=== PATIENT | male | born 1950 | race Caucasian/White ===

== ENCOUNTER 2024-02-27 01:16 | Day surgery (SDC) | payer MEDICARE, SELFPAY ==
[2024-02-15 10:47] VITALS: BMI 24.0
[2024-02-27 06:21] VITALS: BP 116/70; PULSE 86; RESP 16; TEMP 36.3; O2SAT 100; BMI 24.0
[2024-02-27] MEDS: LACTATED RINGERS 1,000 ML 150 ML IV CONT (06:29)
--- NOTE | 2024-02-27 07:00 | P.PNAN_ITS ---
Anes - Initial Pre Proc Eval Procedure: Operation Date: 02/27/24 07:30 Proposed Procedures p Screening Colonoscopy - Serjio Dixon MD <Adán Smith DO - Last Filed: 02/27/24 07:01> Date/Time: 02/27/24 07:00 <Adán Smith DO - Last Filed: 02/27/24 07:01> Surgeon: Serjio Dixon MD <Adán Smith DO - Last Filed: 02/27/24 07:01> Pre Op Diagnosis: Hx Colon Polyps <Adán Smith DO - Last Filed: 02/27/24 07:01> Patient Data Age: 73 Gender: M Height: 1.75 m Weight: 73.9 kg <Adán Smith DO - Last Filed: 02/27/24 07:01> Last Vital Signs Temp 36.3 C L 02/27/24 06:21 Pulse 86 02/27/24 06:21 Resp 16 02/27/24 06:21 BP 116/70 02/27/24 06:21 Pulse Ox 100 02/27/24 06:21 O2 Del Method Room Air 02/27/24 06:21 <Adán Smith DO - Last Filed: 02/27/24 07:01> Allergies Allergy/AdvReac Type Severity Reaction Status Date / Time No Known Allergies Allergy Unknown Verified 02/27/24 06:19 <Adán Smith DO - Last Filed: 02/27/24 07:01> Home Medications Medication Instructions Recorded Confirmed Type Lactobacillus 1 cap PO DAILY 02/15/24 02/27/24 History acidophilus-Bifidobac.animalis 2.5 billion cell capsule (Daily Probiotic) azelastine 137 mcg (0.1 %) nasal 2 spray intranasal BID 02/15/24 02/27/24 History spray finasteride 5 mg tablet 5 mg PO DAILY 02/15/24 02/27/24 History fluticasone propionate 50 2 spray intranasal DAILY 02/15/24 02/27/24 History mcg/actuation nasal spray,suspension lisinopril 20 1 tablet PO DAILY 02/15/24 02/27/24 History mg-hydrochlorothiazide 12.5 mg tablet metoprolol tartrate 50 mg tablet 100 mg PO DAILY 02/15/24 02/27/24 History omeprazole 40 mg capsule,delayed 40 mg PO DAILY 02/15/24 02/27/24 History release <Adán Smith DO - Last Filed: 02/27/24 07:01> Patient hx anesthesia problems: none <Beba Rdz CRNA - Last Filed: 02/27/24 07:21> Family hx anesthesia problems: none <Beba Rdz CRNA - Last Filed: 02/27/24 07:21> Results Review: All pre-operative results and documents have been reviewed as part of the pre-operative evaluation. <Adán Smith DO - Last Filed: 02/27/24 07:01> [facility] Past Medical History Medical History: Medical History (Updated 02/26/24 @ 09:48 by Adán Smith DO) Hypertension SVT (supraventricular tachycardia) <Adán Smith DO - Last Filed: 02/27/24 07:01> Surgical History Surgical History: Surgical History (Updated 02/26/24 @ 09:48 by Adán Smith DO) History of cardiac radiofrequency ablation 2005 History of gastric bypass 2003 <Adán Smith DO - Last Filed: 02/27/24 07:01> Social History Social History: Social History Smoking status: Never smoker Alcohol intake: current Drinks per week: 4 Substance use: never Substance use type: does not use Living arrangements: with family Spiritual care concerns: No <Adán Smith DO - Last Filed: 02/27/24 07:01> Anes - Eval Final PreProcedure Day of Procedure 02/27/24 07:00 <Adán Smith DO - Last Filed: 02/27/24 07:01> Patient weight: normal <Adán Smith DO - Last Filed: 02/27/24 07:01> Heart: regular rate and rhythm <Adán Smith DO - Last Filed: 02/27/24 07:01> Lungs: clear to auscultation and normal air movement <Adán Smith DO - Last Filed: 02/27/24 07:01> Airway: Mallampati scale class II <Adán Smith DO - Last Filed: 02/27/24 07:01> Neurological: alert and oriented <Adán Smith DO - Last Filed: 02/27/24 07:01> Last oral intake: >/= 8 hours <Adán Smith DO - Last Filed: 02/27/24 07:01> ASA classification: III <Adán Smith DO - Last Filed: 02/27/24 07:01> Emergent: no <Adán Smith DO - Last Filed: 02/27/24 07:01> Anesthetic plan: proceed <Adán Smith DO - Last Filed: 02/27/24 07:01> Anesthesia type and monitoring: general GIVS and standard monitoring <Adán Smith DO - Last Filed: 02/27/24 07:01> Results Review: All pre-operative results and documents have been reviewed as part of the pre-operative evaluation. <Adán Smith DO - Last Filed: 02/27/24 07:01> Informed Consent: The patient's anesthetic plan and its attendant risks and benefits were discussed with the patient/family/POA. Questions were solicited and answers provided to the satisfaction of the patient/family/POA. <Adán Smith DO - Last Filed: 02/27/24 07:01>
--- NOTE | 2024-02-27 07:23 | PM.IMHP ---
H&P: HPI History of Present Illness Date/Time: 02/27/24 07:23 Chief Complaint: Screening colonoscopy Narrative: This is the patient's 2nd colonoscopy. the 1st 1 was over 10 years ago. There are no GI symptoms and there is no family history of colorectal cancer. Review of Systems Review of Systems: All systems reviewed & are unremarkable except as noted in HPI and below PMFSH Past Medical History Medical History (Updated 02/27/24 @ 07:24 by Serjio Dixon MD) Hypertension SVT (supraventricular tachycardia) Surgical History Surgical History (Updated 02/26/24 @ 09:48 by Adán Smith DO) History of cardiac radiofrequency ablation 2005 History of gastric bypass 2003 Social History Social History Smoking status: Never smoker Alcohol intake: current Drinks per week: 4 Substance use: never Substance use type: does not use Living arrangements: with family Spiritual care concerns: No Meds Home Medications and Allergies Home Medications Medication Instructions Recorded Confirmed Type Lactobacillus 1 cap PO DAILY 02/15/24 02/27/24 History acidophilus-Bifidobac.animalis 2.5 billion cell capsule (Daily Probiotic) azelastine 137 mcg (0.1 %) nasal 2 spray intranasal BID 02/15/24 02/27/24 History spray finasteride 5 mg tablet 5 mg PO DAILY 02/15/24 02/27/24 History fluticasone propionate 50 2 spray intranasal DAILY 02/15/24 02/27/24 History mcg/actuation nasal spray,suspension lisinopril 20 1 tablet PO DAILY 02/15/24 02/27/24 History mg-hydrochlorothiazide 12.5 mg tablet metoprolol tartrate 50 mg tablet 100 mg PO DAILY 02/15/24 02/27/24 History omeprazole 40 mg capsule,delayed 40 mg PO DAILY 02/15/24 02/27/24 History release Allergies Allergy/AdvReac Type Severity Reaction Status Date / Time No Known Allergies Allergy Unknown Verified 02/27/24 06:19 Vital Signs Vital Signs - 24 hr 02/27/24 06:21 Temperature 97.3 F L Pulse Rate 86 Respiratory Rate 16 Blood Pressure 116/70 Pulse Oximetry 100 Oxygen Delivery Room Air Exam Const: General: cooperative and healthy appearing Resp: Effort & Inspection: normal respiratory effort and able to speak in complete sentences Auscultation: clear to auscultation bilaterally Cardio: Rate: regular rate Rhythm: regular rhythm GI: Inspection: normal to inspection GI Palp: No No hepatosplenomegaly present Auscultation: normal bowel sounds Rectal Exam: deferred Skin: General skin exam: normal color Psych: Appearance: grossly normal Mental Status: mental status grossly normal Assessment and Plan Assessment and plan (1) Screening for malignant neoplasm of colon: Code(s): Z12.11 - Encounter for screening for malignant neoplasm of colon Status: Acute Assessment and Plan: The patient is deemed a good candidate for the procedure. Consent signed. Will proceed.
[2024-02-27 07:47] VITALS: BP 105/67; PULSE 50; RESP 15; O2SAT 99
[2024-02-27 07:57] VITALS: BP 105/61; PULSE 49; RESP 17; O2SAT 99
[2024-02-27 08:07] VITALS: BP 114/72; PULSE 50; RESP 17; O2SAT 99
== END 2024-02-27 08:15 | disposition home or self-care (01) ==
PROVIDERS: PCP Internal Medicine; Referring Provider Internal Medicine; Visit Provider Internal Medicine Gastroenterology
PROC: 0DJD8ZZ Inspection of Lower Intestinal Tract, Via Natural or Artificial Opening Endoscopic (ICD-10-PCS; CPT 45378; principal; 2024-02-27 07:30)
DX: Z12.11 Encounter for screening for malignant neoplasm of colon (principal); K64.0 First degree hemorrhoids; I10 Essential (primary) hypertension; I47.10 Supraventricular tachycardia, unspecified; Z98.84 Bariatric surgery status; Z86.0100 Personal history of colon polyps, unspecified
CPT/HCPCS: G0105; J2003; J2704; J7120

== ENCOUNTER 2024-04-14 09:59 | Outpatient (CLI) | payer MEDICARE, SELFPAY ==
--- NOTE | ~2024-04-14 | DEXA_ITS ---
Bone Density Report Name: KEN JAMES Age: 73 Sex: Male Ethnicity: White Date of : 1950 Indication: screening for osteoporosis; Referring Provider: JOSELYN*, SALLY Rice Study: Bone densitometry was performed. Exam Date: April 14, 2024 Accession number: [id number] Bone Density: Region BMD T-score Z-score Classification AP Spine(L1-L4) 0.891 -1.8 -0.8 Osteopenia Femoral Neck (Left) 0.797 -1.0 0.3 Normal Total Hip (Left) 1.109 0.5 1.3 Normal Femoral Neck (Right) 0.726 -1.5 -0.2 Osteopenia Total Hip (Right) 0.924 -0.7 0.1 Normal Total Hip Mean 1.017 -0.1 0.7 Normal World Health Organization criteria for BMD impression classify patients as: Normal (T-score at or above -1.0), Osteopenia (T-score between -1.0 and -2.5), or Osteoporosis (T-score at or below -2.5). 10-year Fracture Risk(1): Major Osteoporotic Fracture 6.4% Hip Fracture 1.7% Reported Risk Factors: [place] (), Neck BMD=0.726, BMI=24.1 (1) FRAX(R) Version 3.08. Fracture probability calculated for an untreated patient. Fracture probability may be lower if the patient has received treatment. Clinical Information Provided by Patient: Patient maximum height was 69 Impression: The patient has low bone mass, based on the Total Spine T-score. The patient has an estimated ten-year risk of hip fracture of 1.7% and an estimated ten-year risk of major fracture of 6.4%, based on the WHO FRAX algorithm. Discussion: BONE DENSITY IS LOW AT ONE OR MORE SKELETAL SITES. This patient's lowest T-score is low at one or more skeletal sites. It meets the World Health Organization's (WHO) criteria for ?low bone mass? (T-score between -1.0 and -2.5). The patient's 10-year risk of fracture as calculated by FRAX is less than the threshold where pharmacological therapy is recommended by the National Osteoporosis Foundation (NOF). However, all treatment decisions require clinical judgment and consideration of individual patient factors, including patient preferences, comorbidities, previous drug use, risk factors not captured in the FRAX model (e.g., frailty, falls, vitamin D deficiency, increased bone turnover, interval significant decline in bone density) and possible under or overestimation of fracture risk by FRAX. The patient should follow a healthful lifestyle (good nutrition with adequate calcium and vitamin D, and appropriate weight-bearing exercise). Follow-Up: Consider repeating this study in 2 to 3 years to reassess this patient's status, or sooner if there is some new clinical indication. Reported by: ROSEANN on 04/14/2024 10:30:00 AM. Reviewed, dictated and finalized at location [facility]
== END 2024-04-14 10:00 | disposition home or self-care (01) ==
LOC: ANHIMG 10:03
PROVIDERS: PCP Internal Medicine; Visit Provider Internal Medicine
DX: M81.0 Age-related osteoporosis without current pathological fracture (principal); M85.89 Other specified disorders of bone density and structure, multiple sites; Z13.820 Encounter for screening for osteoporosis
CPT/HCPCS: 77080

== ENCOUNTER 2024-07-02 08:30 | Outpatient (CLI) | payer MEDICARE, SELFPAY ==
--- OUTSIDE RECORDS SUMMARY | 2024-07-02 08:56 | XMS_ITS | CONTINUITY OF CARE DOCUMENT ---
Author Name shannon ortega Address Unknown Organization [facility] [address] Address [address] [place] [address] Phone [phone] Care Team Providers Care Eap Counselor Name Role Phone Reza Schaeffer MD Unavailable SALLY AVALOS MD Unavailable SALLY AVALOS MD Unavailable PROBLEMS Condition Status Date Provider Notes Chest pain active [employer] Payer name Policy type / Coverage type [place] red [employer] party ID [facility] [id number] [place] MED[place] Medicare [id number] TREATMENT PLAN Date Name Stress Exercise Card iolite
--- OUTSIDE RECORDS SUMMARY | 2024-07-02 08:57 | XMS_ITS | Clinical Summary ---
Author Organization [facility] Address [address] [place] [address] Care Team Providers Care Statistical Methods Teacher Name Role Phone Keith Ball MD Primary Care Provider [phone] Source Comments [facility],non-owned Affiliates and Associated Physician Practices is amultiple site organization consisting of ambulatory clinics and hospital sitesin [place], [place], [place] and [place]. This disclosure is being madepursuant to the Care Everywhere program and may not contain all information available regarding this patient. Last updated 18.[employer] Allergies No known active allergies Medications * Be aware that medications may not be up to date on this document. Alwaysverify current medications with the patient. Medication Sig Dispensed Refills Start Date End Date Status lisinopril-hydrochloro thiazide (PRINZIDE; ZESTORETIC) 20-12.5 MG tablet Take 1 Tab by mouth once daily Active metoprolol succinate XL 24hr (TOPROL XL) 50 MG tablet Take 50 mg by mouth once daily Active finasteride (PROSCAR) 5 MG tablet Take 5 mg by mouth once daily Active azelastine (ASTEPRO) 205.5 MCG/SPRAY nasal spray [place] 2 Sprays into each nostril 2 times daily Active fluticasone propionate (FLONASE) 50 MCG/ACT nasal spray 03/12/2015 Active Family History Medical History Relation Name Comments Stroke Other 1 Cancer Other 2 Relation Name Status Comments Father (Age 81) stroke Mother (Age 89) stroke Other 1 Other 2 Sister Alive MS Social History Tobacco Use Types Packs/Day Years Used Date Smoking Tobacco: Never Smokeless Tobacco: Never Alcohol Use Standard Drinks/Week Comments Yes 0 (1 standard drink = 0.6 oz pur e alcohol) 3-5 per week Sex and Gender Information Value Date Recorded Sex Assigned at Not on file Gender Identity Not on file Sexual Orientation Not on file Last Filed Vital Signs Vital Sign Reading Time Taken Comments Blood Pressure 126/84 03/31/2015 11:22 AM PARLIAMENTARY COUNSEL Pulse 51 03/31/2015 11:22 AM PARLIAMENTARY COUNSEL Temperature 36.7 C (98 F) 03/31/2015 11:22 AM PARLIAMENTARY COUNSEL Respiratory Rate - - Oxygen Saturation - - Inhaled Oxygen Concentration - - Weight 83.9 kg (185 lb) 03/31/2015 11:22 AM PARLIAMENTARY COUNSEL Height 175.3 cm (5' 9 ) 03/31/2015 11:22 AM PARLIAMENTARY COUNSEL Body Mass Index 27.32 03/31/2015 11:22 AM PARLIAMENTARY COUNSEL Plan of Treatment Health Maintenance Due Date Last Done Comments COLOGUARD (AGES 45-75) - COL ON CA SCREENING 1950 COLON MONITORING 1950 COLONOSCOPY - COLON CA SCREENING 1950 CT COLONOGRAPHY - COLON CA SCREENING 1950 Colorectal Cancer Screening 1950 FIT - COLON CA SCREENING 1950 FLEX SIG - COLON CA SCREENING 1950 LIPID TESTING 1950 HEPATITIS C SCREENING 05/29/1968 DTAP/TDAP/TD VACCINES (1 - Tdap) 1969 PNEUMOCOCCAL VACCINE 50+ (1 of 1 - PCV) 2000 ZOSTER VACCINE (1 of 2) 2000 COVID-19 VACCINE ( - 2023-2 5 season) 2023 INFLUENZA VACCINE (#1) 2023 DEPRESSION SCREENING 04/18/2024 Respiratory Syncytial Virus (RSV) Vaccine Pt: or over 60 yrs (1 - 1-dose 75+ series) 2025 HEPATITIS B VACCINE Aged Out No longe r eligible based on patient's age to complete this topic HIB VACCINE Aged Out No longer eligi ble based on patient's age to complete this topic HPV VACCINE Aged Out No longer eligi ble based on patient's age to complete this topic MENINGOCOCCAL (Group B) VACC INE SHARED DECISION-MAKING Aged Out No longer eligibl e based on patient's age to complete this topic MENINGOCOCCAL GROUPS A/C/Y/W VACCINE Aged Out No longer eligible b ased on patient's age to complete this topic Care Teams Statistical Methods Teacher Relationship Specialty Start Date End Date Keith Ball MD [address] [place] [address] [address] [place] [address] PCP - General Internal Medicine 03/21/15
--- OUTSIDE RECORDS SUMMARY | 2024-07-02 08:57 | XMS_ITS | Referral Summary ---
Author Organization [facility] Address [address] [place] [address] Care Team Providers Care Lean Leader Name Role Phone Keith Ball MD Primary Care Provider [phone] Source Comments [facility],non-owned Affiliates and Associated Physician Practices is amultiple site organization consisting of ambulatory clinics and hospital sitesin [place], [place], [place] and [place]. This disclosure is being madepursuant to the Care Everywhere program and may not contain all information available regarding this patient. Last updated 18.[facility] Allergies No known active allergies Medications * [...] Active azelastine (ASTEPRO) 205.5 MCG/SPRAY nasal spray [place] 2 Sprays into each nostril 2 times daily Active fluticasone propionate (FLONASE) 50 MCG/ACT nasal spray 03/12/2015 Active Social History Tobacco Use Types Packs/Day Years [...] Comments Blood Pressure 126/84 03/31/2015 11:22 AM DIGITAL X RAY SERVICE ENGINEER Pulse 51 03/31/2015 11:22 AM DIGITAL X RAY SERVICE ENGINEER Temperature 36.7 C (98 F) 03/31/2015 11:22 AM DIGITAL X RAY SERVICE ENGINEER Respiratory Rate - - Oxygen Saturation - - Inhaled Oxygen Concentration - - Weight 83.9 kg (185 lb) 03/31/2015 11:22 AM DIGITAL X RAY SERVICE ENGINEER Height 175.3 cm (5' 9 ) 03/31/2015 11:22 AM DIGITAL X RAY SERVICE ENGINEER Body Mass Index 27.32 03/31/2015 11:22 AM DIGITAL X RAY SERVICE ENGINEER Plan of Treatment Not on file Care Teams Lean Leader Relationship Specialty Start Date End Date Keith Ball MD [address] [place] [address] [address] [place] [address] PCP - General Internal Medicine 03/21/15
--- OUTSIDE RECORDS SUMMARY | 2024-07-02 08:57 | XMS_ITS | Data Portability ---
Author Organization [place] [facility], Main Office Address [address] [place] [address] Care Team Providers Care Machining Supervisor Name Role Phone SALLY BALL Primary Care Provider Assessment No assessment recorded. Plan of Treatment Reminders Order Date Submit Date Provider Last Modified By Organization Details Last Modified Time Details Appointments None recorded. Lab enteric bacteria, organism specific culture, stool [address] (Lab), [address] [place], [address], 4 12:36:50 c diff toxin genes, qual, PCR, stool [address] (Lab), [address] [place], [address], 4 12:36:51 O&P (ova & parasites), stool [address] (Lab), [address] [place], [address], 4 12:36:51 calprotecti n, stool 2023 024 [id number] [facility], [address] [facility] [address], [address], 5 17:44:00 pancreatic elastase, quant, stool 2023 024 [id number] [facility], [address] [facility] [address], [address], 5 17:44:00 lipid panel, serum 2023 024 [id number] [facility] [place], [address], [place], [address], 4 14:36:24 CMP, serum or plasma 2023 024 [id number] [facility] [place], [address], [place], [address], 4 14:36:25 vitamin B12, serum 2023 024 [id number] [facility] [place], [address], [place], [address], 4 14:36:25 magnesium, serum or plasma 2023 024 [id number] [facility] [place], [address], [place], [address], 4 14:36:25 CBC w/ auto diff 2023 024 [facility] [place], [address], [place], [address], 4 14:36:24 CMP, serum or plasma 2023 024 [id number] [facility] [place], [address], [place], [address], 4 10:05:38 lipid panel, serum 2023 024 [id number] [facility] [place], [address], [place], [address], 4 10:05:38 PSA, serum or plasma 2023 024 [facility] [place], [address], [place], [address], 4 10:05:39 CBC w/ auto diff 2023 024 [id number] [facility], [address], [place], [address], 4 10:05:38 TSH, serum or plasma 2023 024 [id number] [facility], [address], [place], [address], 4 10:05:38 T4, free, serum 2023 024 [id number] [facility], [address], [place], [address], 4 10:05:39 lyme disease igg+igm, serum, reflex western blot 2022 023 [id number] [facility], [address], [place], [address], 3 09:50:56 CBC w/ auto diff 2022 023 [id number] [facility] [place], [address], [place], [address], 3 09:50:56 CMP, serum or plasma 2022 023 [facility], [address], [place], [address], 3 09:50:56 lipid panel, serum 2022 023 [id number] [facility] [place], [address], [place], [address], 3 09:50:56 Referral None recorded. Procedures None recorded. Surgeries None recorded. Imaging None recorded. Medication Orders pantoprazol e 40 mg tablet,garcía yed release 2023 024 [facility] [place], [address], 4 10:51:42 doxycycline hyclate 100 mg capsule 2022 023 [email or web address] [facility], [address] [place], [address], 4 10:54:27 Patient TargetsNo targets recorded. Patient Instructions Encounter Date Encounter Id Patient Instructions Last Modified By Organization Details Last Modified Time 12/21/2022 [id number] dementia rating scale-2* [email or web address] Not available 12/21/2022 11:17:29 alcohol misuse* Not available 12/21/2022 11:17:30 depression screening* [email or web address] Not available 12/21/2022 11:17:29 multi-dimensiona l health assessment questionnaire* [email or web address] Not available 12/21/2022 11:17:30 Personalized [facility] lt Plan and Screening Recommendations Advance Directives - Do you have one? Yes Advance Directives - Do we have your advance directive on file in your health record? No, please bring in a copy at your earliest convenience Primary Prevention/Interven tion (prevents or decreases the chance of common diseases from occurring) Smoking Risk: Non Smoker Alcohol Misuse Screening: Negative Weight: Appropriate Physical activity: Appropriate physical activity Nutrition: Good Average Fall Risk (screened today): Low Vaccines Pneumococcal: Ordered Recommended today Recommended today, but you have declined No further needed Influenza: Your next one in the fall of this year Chronic Disease Risks Stroke: Low Risk Intermediate Risk I have no recommendations Act ronda diagnosis, Continue current treatment plan Heart Attack: Low risk Intermediate Risk I have no recommendations Act ronda diagnosis, Continue current treatment plan Clogging of the Arteries: Low risk Intermediate Risk I have no recommendations Act ronda diagnosis, Continue current treatment plan Diabetes: Low Risk I have no recommendations Secondary Prevention/Interven tion (detects treatable diseases before they may cause symptoms, disability, or ) Prostate Cancer Screening: Colon Cancer Screening: Colonoscopy Date Screening Last Performed: __2017 Eye Disease Screening: Dementia Risk: Low I have no recommendations Depression Screening: Negative [email or web address] Not available 12/21/2022 10:48:15 Medicare [facility] evaluation risk assessment stable. Follow-up for hypertension -hyperlipidemia -SVT and BPH all clinically stable. Will continue on current Rx. Will check a CBC, CMP, Lipid and Lyme titer. With some doxycycline in the interim. Recheck back in six months. Portions of the record may have been created with voice recognition software. Occasional wrong-word or s ound-a-like substitutions may have occurred due to the inherent limitations of voice recognition software. Read the chart carefully and recognize, using context, where substitutions have occurred. Not available 12/21/2022 11:17:04 06/21/2023 [id number] Atypical chest pain, hypertension, hyperlipidemia history of colon polyp. Will empirically start on some pantoprazole 40 mg once daily in the morning. Set up for upper and lower endoscopy. Check blood work consisting of CBC, CMP, lipid, thyroid and PSA. Follow-up in six months otherwise. FDA recommendations of a influenza, RSV, COVID, pneumococcal immunizations strongly advised. Portions of the record may have been created with voice recognition software. Occasional wrong-word or s ound-a-like substitutions may have occurred due to the inherent limitations of voice recognition software. Read the chart carefully and recognize, using context, where substitutions have occurred. Follow-up colonoscopy for polyp Upper endoscopy for dysphagia [email or web address] Not available 06/21/2023 10:51:13 12/27/2023 [id number] dementia rating scale-2* [email or web address] Not available 12/27/2023 11:19:50 alcohol misuse* [email or web address] Not available 12/27/2023 11:19:50 depression screening* [email or web address] Not available 12/27/2023 11:19:50 multi-dimensiona l health assessment questionnaire* Not available 12/27/2023 11:19:50 Personalized a lth Plan and Screening Recommendations Advance Directives - Do you have one? Yes Advance Directives - Do we have your advance directive on file in your health record? No, please bring in a copy at your earliest convenience Primary Prevention/Interven tion (prevents or decreases the chance of common diseases from occurring) Smoking Risk: Non Smoker Alcohol Misuse Screening: Negative Weight: Appropriate Physical activity: Need more exercise/physical activity Nutrition: Good Average Fall Risk (screened today): Low Vaccines Pneumococcal: Ordered Recommended today Recommended today, but you have declined No further needed Influenza: Your next one in the fall of this year Chronic Disease Risks Stroke: Low Risk Intermediate Risk I have no recommendations Act ronda diagnosis, Continue current treatment plan Heart Attack: Low risk Intermediate Risk I have no recommendations Act ronda diagnosis, Continue current treatment plan Clogging of the Arteries: Low risk Intermediate Risk I have no recommendations Act ronda diagnosis, Continue current treatment plan Diabetes: Low Risk I have no recommendations Secondary Prevention/Interven tion (detects treatable diseases before they may cause symptoms, disability, or ) Prostate Cancer Screening: Colon Cancer Screening: Colonoscopy Date Screening Last Performed: _2021____ Eye Disease Screening: Dementia Risk: Low I have no recommendations Depression Screening: Negative [email or web address] Not available 12/27/2023 11:04:39 Medicare [facility] s evaluation risk assessment stable. Follow-up for hypertension, hyperlipidemia, GERD, osteoarthritis and history of colon polyps. Will continue on current medications but check blood work consisting of CBC, CMP, lipid, B12 magnesium level. Is due for a colonoscopy as well. Continue on current medications and follow-up in six months. Additional Orders - Directives - Recommendations 1. DEXA Scan 2. Colonoscopy Follow-up for colon polyps Next Appointment: 6 Months Approximate Date: 06/24/2024 Portions of the record may have been created with voice recognition software. Occasional wrong-word or s ound-a-like substitutions may have occurred due to the inherent limitations of voice recognition software. Read the chart carefully and recognize, using context, where substitutions have occurred. [email or web address] Not available 12/27/2023 11:19:04 04/04/2024 [id number] Diarrhea, hypertension, hyperlipidemia, SVT, benign prostatic hypertrophy. Plan to check a stool specimen for C diff as as other agents. Will also get a calprotectin level as well as a last days. Continue on current medications this time until further evaluation is been determined. May need a CT scan of the abdomen and pelvis because of a family history GI malignancies although has had an upper endoscopy and colonoscopy was just done recently. Follow Up: 4 Weeks Approximate Date: 05/02/2024 Portions of the record may have been created with voice recognition software. Occasional wrong-word or s ound-a-like substitutions may have occurred due to the inherent limitations of voice recognition software. Read the chart carefully and recognize, using context, where substitutions have occurred. Created: Sally Ball M.D. 04.04.2024 11:32 AM [email or web address] Not available 04/04/2024 12:32:40 Reason for Referral None Reported. Results Created Date Observation Date Name Description Value Unit Range Abnormal Flag Note LastModifiedBy Organization Detail LastModifiedTime 04/16/20 24 04/14/2024 DEXA No observ ation record ed. [email or web address] [facility] [address], [place], [address], 04/16/2024 13:46:45 Result Notes None recorded. 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 2021 Not Available [facility] 3 14:48:07 Benign prostatic hyperplasia 170211193 Active Not Available [facility] 3 14:48:08 Pure hypercholeste rolemia 578033156 Active Not Available [facility] 3 14:48:08 Disorder of prostate 81864283 Active 2022 Not Available [facility] 3 14:48:08 Disorder of penis 30267868 Active Not Available [facility] 3 14:48:08 Migraine 44673215 Active Not Available [facility] 3 14:48:08 Umbilical hernia 407486931 Active Not Available [facility] 3 14:48:08 Disorder of rotator cuff 087414085 Active Not Available [facility] 3 14:48:08 History of polyp of colon 817799056 Active 2016 Not Available [facility] 3 14:48:08 Screening for malignant neoplasm of prostate Active 2021 Not Available [facility] 3 14:48:08 Cervical radiculopathy 52788038 Active Not Available [facility] 3 14:48:08 Carpal tunnel syndrome 17968677 Active Not Available [facility] 3 14:48:08 Supraventricu lar tachycardia 4723089 Active Not Available [facility] 3 14:48:08 Bilateral inguinal hernia 85304620 Active Not Available [facility] 3 14:48:08 Annular erythema 713674641 Active 2022 Sally Ball MD [address], [address], [place], [address] , [employer] 3 11:15:36 Atypical chest pain 529341653 Active 2023 Sally Ball MD [address], [address], [place], [address] , [employer] 4 10:43:15 Osteoarthriti s 965451057 Active 2023 Sally Ball MD [address], [address], [place], [address] , [employer] 4 11:12:48 Gastroesophag eal reflux disease 122845341 Active 2023 Sally Ball MD [address], [address], [place], [address] , [employer] 4 11:14:01 Diarrhea 48408911 Active 2023 Sally Ball MD [address], [place], [address] , [employer] 4 12:25:00 Problem Notes None recorded. Procedures Surgical History Date Name Laterality Status Provider Name and Address Organization Details Recorded Time 4 Medicare Wellness CPT Code, subsequent completed JACQUELYN Carrasquillo [facility] [employer] [facility] 12/27/2023 10:58:03 3 Medicare Wellness CPT Code, subsequent completed JACQUELYN Carrasquillo [facility] 12/21/2022 10:41:54 Imaging Results Imaging Date Name Status LastModified by Organizatio n Details LastModified Time 04/14/2024 DEXA completed [email or web address] [place] [address] [address], [place], [address], 04/16/2024 13:46:45 Procedure Notes None recorded. Medical Equipment None Reported. Medications Name Sig Start Date Stop Date Status Note LastModified by Organization Details LastModified Time celecoxib 200 mg capsule Take 1 capsule every day by oral route. 2023 active Not Available Not Available Not Avai lable cyclobenz aprine 10 mg tablet Take 1 tablet three times daily 11/18 completed Not Available Not Available Not Available doxycycli ne hyclate 100 mg capsule TAKE 1 CAPSULE BY MOUTH TWICE DAILY 12/26 completed Not Available Not Available Not Available lisinopri l 20 mg-hydroc hlorothia zide 12.5 mg tablet TAKE 1 TABLET EVERY DAY 2023 active Not Available Not Available Not Avai lable diphenoxy late-atro pine 2.5 mg-0.025 mg tablet TAKE 1 TABLET BY MOUTH 4 TIMES DAILY NEEDED 11/18 completed Not Available Not Available Not Available penicilli n V potassium 500 mg tablet TAKE 1 TABLET BY MOUTH EVERY 6 HOURS UNTIL GONE 12/26 completed Not Available Not Available Not Available omeprazol e 40 mg capsule,d elayed release TAKE 1 CAPSULE BY MOUTH ONCE DAILY BEFORE A MEAL 2024 active Not Available Not Available Not Avai lable tramadol 50 mg tablet TAKE 1 TABLET BY MOUTH EVERY 6 HOURS NEEDED FOR PAIN active Not Available Not Available No t Available Aleve 220 mg tablet Take 1 tablet every 12 hours by oral route. 2012 active Not Available Not Available Not Avai lable cephalexi n 500 mg capsule TAKE 1 CAPSULE BY MOUTH THREE TIMES A DAY 11/18 completed Not Available Not Available Not Available pantopraz ole 40 mg tablet,de layed release Take 1 tablet every day by oral route. 2023 active Not Available Not Available Not Avai lable metoprolo l tartrate 50 mg tablet TAKE 1 TABLET TWICE DAILY 2023 active Not Available Not Available Not Avai lable azelastin e 137 mcg (0.1 %) nasal spray USE 2 SPRAYS NASALLY TWICE DAILY 2024 active Not Available Not Available Not Avai lable Texline 7.5 mg-325 mg tablet Take 1 tablet every 6 hours by oral route. 04/07 completed Increase Text Size Decrease Text Size Restore Default Font-Siz eClick to Resize TextLast Name First Name Street Address City State Zip Date of Date Filled Label Name Strength Metric Qty/Days Supply Payment Type ? Pharmacy Name/ City Prescrib er NameMOAT Libby ROGERS [address] [place] [address] 1 9 HYDROCOD ONE BITARTRA TE-ACETA MINOPHE 7.5MG-32 5MG 12/11 Medicare [facility] [id number]/ DEVON BALL Not Available Not Available Not Available methylpre dnisolone 4 mg tablets in a dose pack As directed 04/07 completed Not Available Not Available Not Available fluticaso ne propionat e 50 mcg/actua tion nasal spray,lori pension USE 1 SPRAY IN EACH NOSTRIL EVERY DAY 2023 active Not Available Not Available Not Avai lable dicyclomi ne 10 mg capsule TAKE 1 CAPSULE BY MOUTH THREE TIMES DAILY NEEDED FOR DIARRHEA AND PAIN 12/26 completed Not Available Not Available Not Available finasteri de 5 mg tablet TAKE 1 TABLET EVERY DAY 2023 active Not Available Not Available Not Avai lable multivita min daily 04/07 completed Not Available Not Available Not Available azelastin e 205.5 mcg (0.15 %) nasal spray [place] 1 spray twice a day by intranas al route. active Not Available Not Available No t Available Vitamin D2 400 iu daily 03/08 completed Not Available Not Available Not Available Dymista 137 mcg-50 mcg/spray nasal spray 1 SPRAY EACH NOSTRIL DAILY active Not Available Not Available No t Available Dymista 2013 active Not Available Not Available Not Avai lable Probiotic (B. coagulans ) 10 billion cell capsule,d elayed release Take 1 capsule every day by oral route. 2016 active Not Available Not Available Not Avai whitney Maya COVID-19 Ag Self Test kit Use as Directed on the Package 06/01 completed Not Available Not Available Not Available Vitals Date Recorded Body mass index (BMI) Body height Oxygen saturation Oxygen saturation in Arterial blood by Pulse oximetry Heart rate Body temperature Body weight Systolic blood pressure Diastolic blood pressure Provider Name and Address Organization Details Last Updated DateTime 3 25.8 kg/m2 172.72 cm 98 % 98 % 68 /min 97.2 [degF] 51607.7 g 122 mm[Hg] 68 mm[Hg] Not Available [facility] 3 14:47:21 Date Recorded Body height Body mass index (BMI) Body weight Body temperature Oxygen saturation Oxygen saturation in Arterial blood by Pulse oximetry Systolic blood pressure Diastolic blood pressure Provider Name and Address Organization Details Last Updated DateTime 3 172.72 cm 24.9 kg/m2 68031.1 5 g 96.8 [degF] 99 % 99 % 120 mm[Hg] 70 mm[Hg] Selena Chino MA [facility] [employer] [facility] 3 10:36:00 Date Recorded Heart rate Provider Name an d Address Organization Details Last Updated DateTime 12/21/2022 58 /min Sally Ball MD [facility] [address], [address], [facility] [employer] [facility] 12/21/2022 11:11:13 Date Recorded Pain severity - 0-10 verbal numeric rating [Score] - Reported Provider Name and Address Organization Details Last Updated DateTime 12/21/2022 0 Juliana Samaniego RN [facility] [employer] [facility] 12/21/2022 10:42:10 Date Recorded Body height Body mass index (BMI) Body weight Heart rate Body temperature Oxygen saturation Oxygen saturation in Arterial blood by Pulse oximetry Systolic blood pressure Diastolic blood pressure Provider Name and Address Organization Details Last Updated DateTime 4 172.72 cm 26.3 kg/m2 97576.4 8 g 53 /min 97 [degF] 96 % 96 % 144 mm[Hg] 72 mm[Hg] Minnie Coles [facility] [email or web address] 4 10:38:46 Date Recorded Body height Body mass index (BMI) Body weight Heart rate Body temperature Oxygen saturation Oxygen saturation in Arterial blood by Pulse oximetry Systolic blood pressure Diastolic blood pressure Provider Name and Address Organization Details Last Updated DateTime 4 172.72 cm 24.6 kg/m2 44910.9 6 g 55 /min 97.8 [degF] 98 % 98 % 118 mm[Hg] 74 mm[Hg] MARIA FERNANDA Benedict [facility] [employer] [facility] 4 10:53:22 Date Recorded Pain severity - 0-10 verbal numeric rating [Score] - Reported Provider Name and Address Organization Details Last Updated DateTime 12/27/2023 0 Juliana Samaniego RN [facility] [employer] [facility] 12/27/2023 10:58:24 Date Recorded Body height Body mass index (BMI) Body weight Heart rate Body temperature Oxygen saturation Oxygen saturation in Arterial blood by Pulse oximetry Systolic blood pressure Diastolic blood pressure Provider Name and Address Organization Details Last Updated DateTime 4 172.72 cm 25.5 kg/m2 36366.5 2 g 56 /min 97 [degF] 98 % 98 % 118 mm[Hg] 80 mm[Hg] Kristy Luke Christi [facility] [employer] [facility] 4 12:06:57 Social History Question Answer Notes LastModified by Organizat ion Details LastModified Time Tobacco Smoking Status Never Smoker Not Available [facility] 06/16/2022 14:45:22 Do You Have An Advance Directive? Yes [id number] Information not available 06/16/2022 What Is Your Level Of Alcohol Consumption? Occasional [id number].[id number] Information not available 06/16/2022 Are You Blind Or Do You Have Difficulty Seeing? No MIGRATION.14390 [id number] Information not available 06/16/2022 What Is Your Level Of Caffeine Consumption? None MIGRATION.89402 [id number] Information not available 06/16/2022 In The 14 Days Before Symptom Onset, Have You Had Close Contact With A Laboratory-confi rmed COVID-19 While That Case Was Ill? No MIGRATION.61785 [id number] Information not available 06/16/2022 In The 14 Days Before Symptom Onset, Have You Had Close Contact With A Person Who Is Under Investigation For COVID-19 While That Person Was Ill? No MIGRATION.25162 [id number] Information not available 06/16/2022 Are You Deaf Or Do You Have Serious Difficulty Hearing? Yes Has Hearing Aids But Does Not Wear Them MIGRATION.01854 [id number] Information not available 06/16/2022 What Type Of Diet Are You Following? REGULAR MIGRATION.62469 40915 Information not available 06/16/2022 What Is Your Occupation? [employer] MIGRATION.78040 07968 Information not available 06/16/2022 How Many Days Of Moderate To Strenuous Exercise, Like A Brisk Walk, Did You Do In The Last 7 Days? 7 MIGRATION.92468 09489 Information not available 06/16/2022 Have There Been Any Changes To Your Family Or Social Situation? No MIGRATION.10113 84255 Information not available 06/16/2022 What Is The Fluoride Status Of Your Home? Unknown MIGRATION.06465 07587 Information not available 06/16/2022 Are There Any Guns Present In Your Home? Yes MIGRATION.21597 98556 Information not available 06/16/2022 Do You Use Insect Repellent Routinely? No MIGRATION.02841 36279 Information not available 06/16/2022 Where Do You Live? [facility] MIGRATION.09681 00813 Information not available 06/16/2022 Guns Present In The Home? Yes [email or web address] Information not available 12/27/2023 Are You Able To Care For Yourself? Yes [email or web address] Information not available 12/27/2023 Are You Blind Or Do Yo Have Difficulty Seeing? No [email or web address] Information not available 12/27/2023 Are You Deaf Or Do You Have Serious Difficulty Hearing? Yes [email or web address] Information not available 12/27/2023 Live Alone Of With Others? With Others [email or web address] Information not available 12/27/2023 Do You Have A Medical Power Of Learning Support Aide? Yes MIGRATION.07856 [id number] Information not available 06/16/2022 What Was The Date Of Your Most Recent Tobacco Screening? 12/27/2023 [email or web address] Information not available 12/27/2023 Have You Ever Been Counseled For Unhealthy Alcohol Use? No MIGRATION.06600 [id number] Information not available 06/16/2022 Do You Have Any Pets? No MIGRATION.97644 47848 Information not available 06/16/2022 What Is Your Relationship Status? MIGRATION.26999 52054 Information not available 06/16/2022 Do You Use Your Seat Belt Or Car Seat Routinely? Yes MIGRATION.02371 11189 Information not available 06/16/2022 Do You Have Smoke And Carbon Monoxide Detectors In Your Home? Yes MIGRATION.07713 65321 Information not available 06/16/2022 Are You Passively Exposed To Smoke? No MIGRATION.73365 [id number] Information not available 06/16/2022 Are There Any Smokers In Your House? No [id number] Information not available 06/16/2022 Do You Feel Stressed (tense, Restless, Nervous, Or Anxious, Or Unable To Sleep At Night)? [id number] MIGRATION.[id number] Information not available 06/16/2022 Do You Use Any Illicit Or Recreational Drugs? No MIGRATION.00241 [id number] Information not available 06/16/2022 Do You Use Sunscreen Routinely? No MIGRATION.76896 [id number] Information not available 06/16/2022 Have You Recently Traveled Abroad? No MIGRATION.60250 [id number] Information not available 06/16/2022 Do You Have Any Dietary Restrictions? No MIGRATION.02331 08205 Information not available 06/16/2022 Sex: Unknown Functional Status Question Answer Note LastModified by Organizat ion Details LastModified Time Do you have difficulty walking or climbing stairs? No MIGRATION.[id number] Information not available 06/16/2022 Do you have transportation difficulties? No MIGRATION.[id number] 026 Information not available 06/16/2022 Are you able to walk? YESWOREST MIGRATION.[id number] 026 Information not available 06/16/2022 Do you have difficulty doing errands alone? No MIGRATION.[id number] 026 Information not available 06/16/2022 Are you able to care for yourself? No MIGRATION.[id number] 026 Information not available 06/16/2022 Do you have difficulty dressing or bathing? No MIGRATION.[id number] 026 Information not available 06/16/2022 What is your exercise level? Heavy MIGRATION.[id number] 026 Information not available 06/16/2022 Mental Status Question Answer Note LastModified by Organizat ion Details LastModified Time Do you have difficulty concentrating, remembering or making decisions? No MIGRATION.[id number] Information not available 06/16/2022 Family History Nothing Reported Notes:Mother Living 89 years old Father 81 years old 2 Sisters 2 Living Mother Hx: HTN Father Hx: HTN, ASHD One sister MS other living and good health Medical History Condition Response NERVE DISEASE N BLINDNESS N RHEUMATIC FEVER N KIDNEY STONES N BLADDER PROBLEMS N MRSA N OTHER # 1 N POLIO N LUNG DISEASE/DISORDER N HISTORY OF DRUG ABUSE N COPD N RADIATION / CHEMOTHERAPY N Other # 2 N BLOOD DISEASES N EAR OR HEARING PROBLEMS N MUMPS N SHINGLES N BOWEL PROBLEMS Y DEPRESSION (INCLUDING POST ) N STROKE/TIA N ULCERS N BENIGN PROSTATIC HYPERPLASIA N MEASLES N HYPOTENSION N MYOCARDIAL INFARCTION N OBESITY N GERD/NAUSEA N ANEURYSM N URINARY/BLADDER/KIDNEY PROBLEMS N CORONARY ARTERY DISEASE (CAD) N ADDICTION CONCERNS N ENDOMETRIOSIS N Impotence N USE OF BLOOD THINNERS N SKIN PROBLEMS N GASTROINTESTINAL DISORDER N PERIPHERAL VASCULAR DISEASE N MUSCLE,JOINT OR BONE PROBLEMS N GASTROINTESTINAL BLEEDING N BLOOD CLOTS N ASTHMA N CATARACTS N ERECTILE DYSFUNCTION N VARICOSITIES N GI PROBLEMS N Low Testosterone N INFERTILITY N AIDS/HIV N CHEMOTHERAPY / RADIATION N LIVER DISEASE N MALE HYPOGONADISM N HYPERTENSION Y Deficiency N TOURETTE'S N ANXIETY DISORDER N BLOOD TRANSFUSION N ANEMIA/BLOOD DISORDER N CHRONIC EAR INFECTIONS N BRONCHITIS N TUBERCULOSIS N GLAUCOMA N FOOT PROBLEM N DIVERTICULITIS N CHICKENPOX N SLEEP APNEA N INFECTIOUS DISEASE N HEART ARRHYTHMIA N PROSTATE N INSOMNIA Y HIGH CHOLESTEROL / HYPERLIPIDEMIA Y HYPERTHYROIDISM N EYE PROBLEMS N EDEMA N CHRONIC PAIN SYNDROME N HYPOTHYROIDISM N CAROTID BLOCKAGE N CONSTIPATION N BACK / NECK PROBLEMS Y HAVE YOU BEEN HOSPITALIZED OR SEEN IN [facility] IN THE PAST YEAR ? N ATHEROSCLEROSIS N BREAST PROBLEMS N DIALYSIS N ECZEMA N OSTEOPOROSIS N ARTHRITIS N NO SIGNIFICANT PAST MEDICAL HISTORY N APPENDICITIS N DIABETES, TYPE N BAD TEETH N ENT N HEARTBURN / REFLUX N AUTISM SPECTRUM DISORDER (ASD) N HEPATITIS / LIVER DISEASE N GOUT N SLEEP DISORDER N ALZHEIMER'S DISEASE N Brain Problems N HERPES N DEMENTIA N HEADACHES/MIGRAINES Y SEIZURES/EPILEPSY N VASCULAR DISEASE N PACEMAKER N Blood Disorder N DIZZINESS N HEART DISEASE/HEART PROBLEMS N KIDNEY DISEASE N MULTIPLE SCLEROSIS N CARDIAC ARRHYTHMIA N CANCER: SPECIFY N ATRIAL FIBRILLATION N Gall Stones N PULMONARY EMBOLISM N AUTOIMMUNE DISEASE N Immunizations Vaccine Type Date Status Note Provider Nam e and Address Organization Details Recorded Time Respiratory syncytial virus (RSV) vaccine, unspecified 3 completed RICHARD Hernandez Libby MD [facility] 04/22/2023 00:54:36 influenza, unspecified formulation 3 completed Minnie hartmann [facility] 04/22/2023 00:55:16 SARS-COV-2 (COVID-19) vaccine, UNSPECIFIED 3 completed Minnie hartmann, [facility] 04/22/2023 00:56:46 zoster live 3 completed Not Available [facility] 06/16/2022 14:50:55 SARS-COV-2 (COVID-19) vaccine, UNSPECIFIED 1 completed Not Available [facility] 06/16/2022 14:50:55 COVID-19, mRNA, LNP-S, bivalent, PF, 50 mcg/0.5 mL or 25mcg/0.25 mL dose 2 completed Not Available [facility] 06/16/2022 14:50:55 Influenza, split virus, quadrivalent, preservative 2 completed Not Available [facility] 06/16/2022 14:50:55 Influenza, split virus, quadrivalent, preservative 1 completed Not Available [facility] 06/16/2022 14:50:55 COVID-19, mRNA, LNP-S, PF, 100 mcg/0.5mL dose or 50 mcg/0.25mL dose 1 completed Not Available [facility] 06/16/2022 14:50:55 SARS-COV-2 (COVID-19) vaccine, UNSPECIFIED 1 completed Not Available [facility] 06/16/2022 14:50:56 SARS-COV-2 (COVID-19) vaccine, UNSPECIFIED 1 completed Not Available [facility] 06/16/2022 14:50:56 pneumococcal polysaccharide PPV23 8 completed Not Available [facility] 06/16/2022 14:50:56 Influenza, split virus, trivalent, preservative 6 completed Not Available [facility] 06/16/2022 14:50:56 Influenza, high-dose, trivalent, PF 9 completed Not Available [facility] 06/16/2022 14:50:56 Influenza, high-dose, trivalent, PF 8 completed Not Available [facility] 06/16/2022 14:50:56 Influenza, high-dose, trivalent, PF 7 completed Not Available [facility] 06/16/2022 14:50:56 Pneumococcal conjugate PCV 13 7 completed Not Available [facility] 06/16/2022 14:50:56 Influenza, split virus, trivalent, preservative 4 completed Not Available [facility] 06/16/2022 14:50:56 Influenza, split virus, trivalent, preservative 3 completed Not Available [facility] 06/16/2022 14:50:56 Pneumococcal conjugate PCV20, polysaccharide [id number] conjugate, adjuvant, PF 4 completed MARIA FERNANDA [place], [place] - [facility] 04/04/2024 14:06:50 Past Encounters Encounter ID Performer Location Encounter Start Date Encounter Closed Date Diagnosis/Indication Diagnosis SNOMED-CT Code Diagnosis ICD10 Code Diagnosis Note [id number] [facility] Internal [facility] [place] [address] [place] [address] y , [place] [address] 11/18/2020 00:00:00 11/18/2020 16:03:42 [id number] [facility] Internal Med [place] [address] [place] [address] y , [place] [address] 05/19/2021 00:00:00 05/19/2021 10:41:40 [id number] [facility] Internal [facility] [place] [address] [place] [address] y , [place] [address] 12/01/2021 00:00:00 12/01/2021 10:45:34 [id number] [facility] Internal [facility] [place] [address] [place] [address] y , [place] [address] 06/01/2022 00:00:00 06/01/2022 10:49:13 [id number] Sally Ball MD [facility] Internal [facility] [place] [address] [place] [address] y , [place] [address] 12/21/2022 10:29:01 12/21/2022 11:21:56 Adult health examination 900884679 Z00.00 Screening for disorder 490358456 Z13.9 Pure hypercholesterolemia 382593774 E78.00 Supraventr icular tachycardia 6066291 I47.1 Benign pro static hyperplasia 265828197 N40.0 Benign ess ential hypertension 3087559 I10 Annular erythema 00 L53.2 [id number] Sally Ball MD [facility] Internal [facility] [address] [facility] [place] [address] 06/21/2023 10:31:48 06/22/2023 08:39:11 Atypical chest pain 701603575 R07.89 Benign ess ential hypertension 6696406 I10 Pure hypercholesterolemia 057416564 E78.00 History of polyp of colon 995540856 Z86.010 Disorder of prostate 302 82267 N42.9 [id number] Sally Ball MD [facility] Internal [facility] [address] [facility] [place] [address] 12/27/2023 10:39:00 12/27/2023 11:26:46 Adult health examination 366617812 Z00.00 Screening for disorder 414580654 Z13.9 Benign ess ential hypertension 7040792 I10 History of polyp of colon 809295043 Z86.010 Pure hypercholesterolemia 050298812 E78.00 Osteoarthritis 543564425 M19.90 Gastroesop hageal reflux disease 692588015 K21.9 [id number] Sally Ball MD [facility] Internal [facility] [address] [facility] [address] [place] [address] 04/04/2024 12:00:40 04/04/2024 14:53:33 Diarrhea 07890669 K52.89 R19.7 Benign ess ential hypertension 9006002 I10 Benign pro static hyperplasia 232220397 N40.0 Pure hypercholesterolemia 618300645 E78.00 Supraventr icular tachycardia 3951996 I47.10 Health Concerns Section Related Observation LastModified by Organization Detai ls LastModified Time None Recorded Concern Status LastModified by Organization Details LastModified Time None Recorded Advance Directives Directive Y: Payers Encounter Date Sequence Insurance Name Policy Number Policy Terry Covered Member ID Terry Member ID Guarantor Name 12/21/2022 1 [place] Chris D Glenn [id number] Chris D Glenn 12/21/2022 2 [place] [id number] Chris D Glenn [id number] Chris D Glenn 06/21/2023 1 [place] Chris D Glenn [id number] Chris D Glenn 06/21/2023 2 [employer] (MEDICARE SUPPLEMENT) PLAN F Chris D Glenn [id number] Chris D Glenn 12/27/2023 1 [place] Chris D Glenn [id number] Chris D Glenn 12/27/2023 2 [employer] [facility] (MEDICARE SUPPLEMENT) PLAN F Chris D Glenn [id number] Chris D Glenn 04/04/2024 1 [place] Chris D Glenn [id number] Chris D Glenn 04/04/2024 2 [employer] (MEDICARE SUPPLEMENT) PLAN F Chris D Glenn [id number] Chris D Glenn Notes Date Note Type Note Provider Name and Address Organization Details Recorded Time 3 text/htm l Patient Name: Chris ElizabethDate Of Service: Tuesday ( 12.21.2022 ): 1950 Age: 72 There has been approximately a 6 lb weight loss since 06/01/2022. This represents approximately a 3.5% change in weight. Weight change attributable to lifestyle changes. Vital Signs:Blood Pressure: Sitting Rt. Arm 120/70Pulse: Sitting 58 /min and RegularRespirations: 12Height 68 in or 1.7 mWeight 164 lb or 74.4 kgBMI 24.9Temperature: 96.8 F or 36.0 CPulse Oximetry: 99 % at rest on no oxygen Chief Complaint: Addressed in HPI Problems or conditions discussed in the HPI were the only ones reviewed during the encounter.Only social and family history addressed in the HPI were reviewed during this encounter. A significant, separate E/M service was performed to evaluate the current and new problems. Attendant(s): None Constitutional and Systemic Symptoms: none Medication Reconciliation: from medication list. History of Present Illness Reviewed the findings of the preventative health visit. Addressed all areas with the patient, patient's family or caregivers. Preventative examinations and testing immunizations - vaccinations, colonic neoplasm screening and PSA all reviewed and ordered where patient was amenable to the recommendations. Cognitive function was normal. Depression addressed and where necessary medications were adjusted or instituted. End of life and living will briefly discussed with patient and where these can be filled out and legally executed. Other blood and imaging studies were ordered if considered necessary. Other recommendations may be found in the encounter note. #1. Essential Hypertension: Stage: Stage I Interval Neurological Complaints no headaches, dizziness, weakness, visual changes, ataxia, aphasia and apraxia. No shortness of breath, orthopnea or cardiovascular symptoms. No other symptoms related to end organ damage. Pressure has been under excellent control. Currently normal. No other end organ symptoms or findings. Therapy reviewed regarding management of hypertension and includes salt restriction and Lopressor and Zestoretic. #2. Type II Hypercholesterolaemia: Currently taking medication and tolerating well. No interval complaints of any muscle pain or arthralgia. No significant liver changes with medications. Last lipid panel: fair control. Therapy reviewed regarding treatment of cholesterol management and include diet. #3. Hx of SVT currently stable. No interval change in frequency, duration or intensity of episodes. Has had none since the last visit. Tolerating medications well. #4. Hx of BPH currently stable. No change in strength or initiation of urinary stream. No post voiding problems. No hx of any fever or chills. Currently taking Lopressor and Zestoretic. #5. Several lesions are noted in the left upper thigh. Central reddish area surrounded by clearing than by ring consistent with possible erythema margin item. Was out boating this week and was apparently bitten by some form of insect does not know was attack or any other associated insects. Has had some mild generalized muscular pain but nothing substantial. Be checking a Lyme titer and will cover with some doxycycline in the interim.:Medication List Reviewed and Reconciled 12/21/2022Lopressor 50 MG (TABLET - ORAL) One Bid For HtnProscar 5 MG (TABLET - ORAL) One Daily For BphDymista 0.125 MG /SPRAY-0.05 MG/SPRAY (SPRAY, METERED - NASAL) One [place] Each Nostril DailyMultivitamin One DailyVitamin D 400 IU One DialyAleve 200 MG (TABLET - ORAL) One Bid For Cervical ReadiculopathyZestoretic 12.5 MG-20 MG (TABLET - ORAL) One Daily For HtnCelebrex 200 MG CAPSULE One Bid PrnTramadol Hydrochloride 50 MG TABLET One Twice DailyVaccination and Ghoblehoxawp9767-19 Covid Booster Mqpidnp6239-23 Xbngrwjqt0575-98 Covid Booster Hntfac0411-58 Covid Migfneo3015-27 Ilreuzum5185-85 Pneumovax 206275-30 Prevnar 13Surgical HistoryBilateral Inguinal Hernias, Ventral Hernia with Mesh, Radiofrequency Ablation SVT, Gastric Bypass, SVT Ablation, hernia repair laproscopy, Marvin. CTSPreventative Testing Confirmed by Our Vnbprge2906/15/2022 ALBUMIN 4.4 G/DL06/15/2022 PSA 0.9 NG/ML07/09/2021 UPPER LLGTWJHXO97/07/2022 DEXA SCAN04/14/2018 COLONOSCOPY (5 YEARS) /04/2015 HAIC 5.7 % OF TOTAL HGB HSocial HistoryDoes not smoke cigarettes. 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 Hx: Sexually ActiveOccupation: Office WorkerFamily HistoryMother 89 years oldFather 81 years old2 Sisters 2 LivingMother Hx: HTN and CVAFather Hx: HTN, ASHDOne sister MS other living and good health Sally Ball MD [address] [facility], [place], [address], [facility] 12/21/2022 11:17:35 4 text/htm l Patient Name: Chris Silvate Of Service: Tuesday ( 06.21.2023 ): 1950 Age: 73 There has been approximately a 9 lb weight gain since 12/21/2022. This represents approximately a 5.5% change in weight. Weight change attributable to lifestyle changes. Vital Signs:Blood Pressure: Sitting Rt. Arm 144/72Pulse: Sitting 53 /min and RegularRespiratory Rate: 12Height 68 in or 1.7 mWeight 173 lb or 78.5 kgBMI 26.3Temperature: 97 F or 36.1 CPulse Oximetry: 96 % at rest on no oxygen Chief Complaint: Addressed in HPI Problems or conditions discussed in the HPI were the only ones reviewed during the encounter.Only social and family history addressed in the HPI were reviewed during this encounter. Attendant(s): NoneConstitutional and Systemic Symptoms:none Medication Reconciliation: from medication list. History of Present Illness #1. Several episodes of substernal chest pain not precipitated by eating, exertion or any other activity or movement that it tends to produce the pain. The pain is described as quite severe located in the substernal area. There is no radiation to the neck, shoulder, jaw, back or arm. Duration approximately 20 minutes. Not particularly related by ingestion of food over does have some postprandial symptoms sometimes followed by occasional discomfort in the midchest. Did have her upper endoscopy several years ago. Has not been on any type of regular use of any type of PPI inhibitors. Denies any exertional component to the pain. Is able to run and do all these other physical activity without any symptomatology at all. Is currently due for follow-up colonoscopy for polyp. Suggest that we possibly also do an upper endoscopy at that time to rule out any type of stricture or any other type of esophageal abnormalities. Is also status post gastric bypass.: #2. Essential Hypertension: Stage: Stage I Interval Neurological Complaints no headaches, dizziness, weakness, visual changes, ataxia and aphasia. No shortness of breath, orthopnea or cardiovascular symptoms. No other symptoms related to end organ damage. Pressure has been under fair control. Currently normal. No other end organ symptoms or findings. Therapy reviewed regarding management of hypertension and includes salt restriction and Lopressor and Zestoretic. #3. Type II Hypercholesterolaemia: Currently not taking medication. No interval complaints of any muscle pain or arthralgia. No significant liver changes with medications. Last lipid panel: fair control. Therapy reviewed regarding treatment of cholesterol management and include diet. #4. Colon polyps: Hx of colon polyps. No interval complaints of any bleeding or change in bowel habits. Last colonoscopy was longer than five years ago. Active Medication ListLopressor 50 MG (TABLET - ORAL) One Bid For HtnProscar 5 MG (TABLET - ORAL) One Daily For BphDymista 0.125 MG /SPRAY-0.05 MG/SPRAY (SPRAY, METERED - NASAL) One [place] Each Nostril DailyMultivitamin One DailyVitamin D 400 IU One DialyAleve 200 MG (TABLET - ORAL) One Bid For Cervical ReadiculopathyZestoretic 12.5 MG-20 MG (TABLET - ORAL) One Daily For HtnCelebrex 200 MG CAPSULE One Bid PrnTramadol Hydrochloride 50 MG TABLET One Twice Daily Vaccination and Atzfqmspzoes3390-74 Covid Booster Tgwztmy1044-26 Tzgumpufh2623-95 Covid Tsbtixj7083-85 Pydyaaol4039-49 Vdmaamzdv7843-13 Prevnar 13 Gc Surgical Upmjewq9262-89 Bilateral Inguinal Qopmyuk5295-59 Ventral Hernia with Ddtk8973-35 Radiofrequency Ablation EOB8919-10 Gastric Xhgivu3185-97 SVT Jltscmoe1747-30 hernia repair wswgjiivfa2274-73 Marvin. CTS Preventative Dgccimz1212/23/2022 ALBUMIN 4.5 G/DL N006/15/2022 PSA 0.9 NG/ML N007/09/2021 UPPER UFOKMDDQV31/07/2022 DEXA SCAN04/14/2018 COLONOSCOPY (5 YEARS) /04/2015 HAIC 5.7 % OF TOTAL HGB H Social HistoryDoes not smoke cigarettes. 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 Family HistoryMother 89 years oldFather 81 years old2 Sisters 2 LivingMother Hx: HTN and CVAFather Hx: HTN, ASHDOne sister MS other living and good health TEST RESULT RANGE UNITSLIPID PANEL Date: 3CHOLESTEROL, TOTAL 177 100-199 MG/DLTRIGLYCERIDES 81 0-149 MG/DLHDL CHOLESTEROL 63 >39 MG/DLLDL [facility] ([facility]) 99 0-99 MG/DL Sally Ball MD [address] [facility], [place], [address], [facility] 06/21/2023 10:51:32 4 text/htm l Patient Name: Chris Dasilva Of Service: Tuesday ( 12.27.2023 ): 1950 Age: 73 There has been approximately a 11 lb weight loss since 06/21/2023. This represents approximately a 6.4% change in weight. Weight change attributable to lifestyle changes. Vital Signs:Blood Pressure: Sitting Rt. Arm 118/74Pulse: Sitting 55 /min and RegularRespiratory Rate: 14Height 68 in or 1.7 mWeight 162 lb or 73.5 kgBMI 24.6Temperature: 97.8 F or 36.6 CPulse Oximetry: 98 % at rest on no oxygen Chief Complaint: Addressed in HPI Problems or conditions discussed in the HPI were the only ones reviewed during the encounter.Only social and family history addressed in the HPI were reviewed during this encounter. A significant, separate E/M service was performed to evaluate the current and new problems. Attendant(s): NoneConstitutional and Systemic Symptoms:none Medication Reconciliation: from medication list. History of Present Illness Reviewed the findings of the preventative health visit. Addressed all areas with the patient, patient's family or caregivers. Preventative examinations and testing immunizations - vaccinations, colonic neoplasm screening and PSA all reviewed and ordered where patient was amenable to the recommendations. Cognitive function was normal. Depression addressed and where necessary medications were adjusted or instituted. End of life and living will briefly discussed with patient and where these can be filled out and legally executed. Other blood and imaging studies were ordered if considered necessary. Other recommendations may be found in the encounter note. #1. Essential Hypertension: Stage: Stage I Interval Neurological Complaints no headaches, dizziness, weakness, visual changes, ataxia, aphasia and apraxia. No shortness of breath, orthopnea or cardiovascular symptoms. No other symptoms related to end organ damage. Pressure has been under excellent control. Currently normal. No other end organ symptoms or findings. Therapy reviewed regarding management of hypertension and includes salt restriction and Lopressor and Zestoretic. #2. Type II Hypercholesterolaemia: Currently taking medication and tolerating well. No interval complaints of any muscle pain or arthralgia. No significant liver changes with medications. Last lipid panel: fair control. Therapy reviewed regarding treatment of cholesterol management and include diet. #3. Hx of esophageal reflux currently stable. Hx of Complications: none The severity, duration and intensity of symptoms have remained the same. Frequency: most meals Treatment consists medications taken on a regular basis. Current therapy includes Pantoprazole. There has been no nausea, eructation, vomiting, hematemesis, dysphagia, velopharyngeal insufficiency and odynophagia. No change in he frequency or intensity of symptoms. Has had no melena. Has had no . Discussed use of H2 antagonists and the possibility of trying to reduce the frequency of the use of any PPI inhibitors and try H2 antagonists to see if symptoms can be controlled with lease intensive therapy since a number of complications are associated with chronic prolonged use of PPI inhibitors. #4. Hx of DJD stable. No interval complaints of any additional joint pain, swelling or redness. Joints most involved include hands and hips. Medications: NSAIDS The DJD does interfere with ADL and ambulation. #5. Colon polyps: Hx of colon polyps. No interval complaints of any bleeding or change in bowel habits. Last colonoscopy was longer than five years ago. Active Medication ListPantoprazole 40 MG GRANULE, DELAYED RELEASE DailyLopressor 50 MG (TABLET - ORAL) One Bid For HtnProscar 5 MG (TABLET - ORAL) One Daily For BphDymista 0.125 MG /SPRAY-0.05 MG/SPRAY (SPRAY, METERED - NASAL) One [place] Each Nostril DailyMultivitamin One DailyVitamin D 400 IU One DialyAleve 200 MG (TABLET - ORAL) One Bid For Cervical ReadiculopathyZestoretic 12.5 MG-20 MG (TABLET - ORAL) One Daily For HtnCelebrex 200 MG CAPSULE One Bid PrnTramadol Hydrochloride 50 MG TABLET One Twice Daily Vaccination and Akcqyfjlmenw7725-03 Covid Booster Yiuzzyp1140-87 Kpoyzxgoc1441-95 Covid Hkfnlyg6706-08 Ufslfzkr4431-95 Bsnaagklu4536-79 Prevnar 13 Gc Surgical Xofqprx2381-32 Bilateral Inguinal Yfldcbr7337-66 Ventral Hernia with Vjis7818-49 Radiofrequency Ablation WFR4452-44 Gastric Ewjqdw9820-59 SVT Soytsrrn3401-68 hernia repair mwljeqpkpz0472-81 Marvin. CTS Preventative Testing( ) 06/23/2023 Albumin 4.3 G/DL( ) 06/23/2023 PSA 1.1 NG/ML 06/22/2025( ) 07/09/2021 Upper Endoscopy(X) 05/25/2021 DEXA Scan 05/25/2023(X) 04/14/2018 Colonoscopy (5 Years) 04/14/2023( ) 09/17/2015 HAIC 5.7 % OF TOTAL HGB H Social HistoryDoes not smoke cigarettes. 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 METABOLIC PANEL (14) Date: 06/23/2023SODIUM 142 134-144 MMOL/LPOTASSIUM 3.9 3.5-5.2 MMOL/LGLUCOSE 96 70-99 MG/DLBUN 14 8-27 MG/DLCREATININE 1.07 0.76-1.27 MG/DLEGFR 73 >59 ML/MIN/1.73ALKALINE PHOSPHATASE 106 44-121 IU/LAST (SGOT) 22 0-40 IU/LALT (SGPT) 20 0-44 IU/LLIPID PANEL Date: 4CHOLESTEROL, TOTAL 182 100-199 MG/DLTRIGLYCERIDES 58 0-149 MG/DLHDL CHOLESTEROL 69 >39 MG/DLLDL CHOL CALC (NIH) 102 0-99 MG/DLPROSTATE-SPECIFIC AG Date: 4PROSTATE SPECIFIC AG 1.1 0.0-4.0 NG/ML Sally Ball MD [address] [facility], [address], [place], [address], [place] [facility] MD [email or web address] 12/27/2023 11:19:55 4 text/htm l Patient Name: Chris ElizabethChandlerte Of Service: Tuesday ( 04.04.2024 ): 1950 Age: 73 There has been approximately a 6 lb weight gain since 12/27/2023. This represents approximately a 3.7% change in weight. Weight change attributable to lifestyle changes. Vital Signs:Blood Pressure: Sitting Rt. Arm 118/80Pulse: Sitting 56 /min and RegularRespiratory Rate: 16Height 68 in or 1.7 mWeight 168 lb or 76.2 kgBMI 25.5Temperature: 97 F or 36.1 CPulse Oximetry: 98 % at rest on no oxygen Chief Complaint: Addressed in HPI Problems or conditions discussed in the HPI were the only ones reviewed during the encounter.Only social and family history addressed in the HPI were reviewed during this encounter. Attendant(s): NoneConstitutional and Systemic Symptoms:none Medication Reconciliation: from medication list. History of Present Illness #1. Findings of recent onset of recurrent significant diarrhea with a more than eight or nine bowel movements per day. Rapid transient symptoms. Is status post small-bowel bypass back some 20 years ago. Is bothered by intermittent mild diarrhea this has been much more severe. Has had an upper endoscopy and colonoscopy done within the last several years. No abnormalities noted. Denies any blood or any other foreign containing material in the stool. 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 Will check blood work for inflammatory infectious forms of diarrhea along with a calprotectin as well as a stool esterase test: #2. Essential Hypertension: Stage: Stage I Interval Neurological Complaints no headaches, dizziness, weakness, visual changes, ataxia, aphasia and apraxia. No shortness of breath, orthopnea or cardiovascular symptoms. No other symptoms related to end organ damage. Pressure has been under excellent control. Currently normal. No other end organ symptoms or findings. Therapy reviewed regarding management of hypertension and includes salt restriction and Lopressor and Zestoretic. #3. Type II Hypercholesterolaemia: Currently taking medication and tolerating well. No interval complaints of any muscle pain or arthralgia. No significant liver changes with medications. Last lipid panel: fair control. Therapy reviewed regarding treatment of cholesterol management and include diet. #4. Hx of SVT currently stable. No interval change in frequency, duration or intensity of episodes. Has had None is status post ablation since the last visit. Tolerating medications well. #5. Hx of BPH currently stable. No change in strength or initiation of urinary stream. No post voiding problems. No hx of any fever or chills. Currently taking Flomax. Active Medication ListOmeprazole 40 MG CAPSULE, COATED PELLETS DailyLopressor 50 MG (TABLET - ORAL) One Bid For HtnProscar 5 MG (TABLET - ORAL) One Daily For BphDymista 0.125 MG /SPRAY-0.05 MG/SPRAY (SPRAY, METERED - NASAL) One [place] Each Nostril DailyMultivitamin One DailyVitamin D 400 IU One DialyAleve 200 MG (TABLET - ORAL) One Bid For Cervical ReadiculopathyZestoretic 12.5 MG-20 MG (TABLET - ORAL) One Daily For HtnCelebrex 200 MG CAPSULE Once DailyTramadol Hydrochloride 50 MG TABLET One Twice DailyFlomax .4 MG CAPSULE One Hs Vaccination and Immunization(X) 2022-01 INFLUENZA( ) 2017-02 PREVNAR 13 GC(X) 2018-02 PNEUMOVAX PREVNAR 20 Needed( ) 2020-02 SHINGRIX( ) 2020-05 COVID MODERNA(X) 2022-02 COVID BOOSTER MODERNA Surgical [id number] Bilateral Inguinal Vedhhuw1666-90 Ventral Hernia with Jnvm7962-22 Radiofrequency Ablation [id number] Gastric Dkusqz6185-05 SVT Evammblz2323-32 hernia repair caxwvhecrp7125-76 Marvin. CTS Preventative Testing( ) 02/27/2024 Colonoscopy ( 10 Years ) 02/26/2034( ) 12/30/2023 Albumin 4.3 G/DL( ) 06/23/2023 PSA 1.1 NG/ML 06/22/2025(X) 07/09/2021 Upper Endoscopy 07/10/2023(X) 05/25/2021 DEXA Scan 05/25/2023( ) 09/17/2015 HAIC 5.7 % OF TOTAL HGB H Social HistoryDoes not smoke cigarettes. 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
--- OUTSIDE RECORDS SUMMARY | 2024-07-02 08:57 | XMS_ITS | Clinical Summary ---
Author Organization [facility] [address] Address [address] [place] [address] Care Team Providers Care Research Program Internship Name Role Phone Keith Ball MD Primary Care Provider Allergies No known active allergies Medications lisinopril-hydr oCHLOROthiazide (ZESTORETIC) 20-12.5 mg per tablet 2 Active metoprolol tartrate (LOPRESSOR) 50 mg immediate release tablet 2 Active finasteride (PROSCAR) 5 mg tablet 2 Active azelastine 205.5 mcg (0.15 %) spray,non-aeros ol Administer 2 sprays into affected nostril(s) 2 (two) times a day Active fluticasone propionate (FLONASE) 50 mcg/actuation nasal spray 2 Active dicyclomine (BENTYL) 10 mg capsule TAKE 1 CAPSULE BY MOUTH THREE TIMES DAILY NEEDED FOR DIARRHEA AND PAIN 2 Active traMADoL (ULTRAM) 50 mg tablet Take 1 tablet every 6 hours as needed for pain. 40 tablet 2 Active celecoxib (CeleBREX) 200 mg capsule TAKE 1 CAPSULE BY MOUTH TWICE DAILY 60 capsule 2 3 Active Active Problems No known active problems Surgical History Surgery Date Site/Laterality Comments [place] NEUROPLASTY &/TRANSPOS MEDIAN NRV CARPAL TUNNE Neuroplasty Decompression Median Nerve At Carpal Tunnel - Left, 03/2000 (Added by TW Conv) [place] NEUROPLASTY &/TRANSPOS MEDIAN NRV CARPAL TUNNE Neuroplasty Decompression Median Nerve At Carpal Tunnel - Right, 04/2000 (Added by TW Conv) [place] REPAIR FIRST ABDOMINAL [place] LL HERNIA Ventral Hernia Repair - 06/05/01 (Added by TW Conv) [place] GSTR RSTCV W/O BYP OTH/TH N SALOMON-BANDED GSTP Gastric Surgery For Morbid Obesity Gastric Stapling - (Added by TW Conv) CARPAL TUNNEL RELEASE SHOULDER SURGERY Medical History Medical History Date Comments Personal history of other di seases of the circulatory system History of hypertension - (A dded by TW Conv) Supraventricular tachycardia Sup raventricular tachycardia - (Added by TW Conv) Atrial fibrillation (HCC) Hypertension Migraines Gastric reflux Family History Medical History Relation Name Comments Arthritis Other Cancer Other Hypertension Other Stroke Other Relation Name Status Comments Other Social History Tobacco Use Types Packs/Day Years Used Date Smoking Tobacco: Never Smokeless Tobacco: Never Sex and Gender Information Value Date Recorded Sex Assigned at Not on file Legal Sex Male 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 ZIPPER 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 Gender Identity Not on file Sexual Orientation Not on file Obstetrics History Last Filed Vital Signs Vital Sign Reading Time Taken Comments Blood Pressure 148/78 01/21/2022 8:35 AM CDT Pulse 59 01/21/2022 8:35 AM CDT Temperature - - Respiratory Rate - - Oxygen Saturation 98% 10/05/2012 10:34 AM CDT Inhaled Oxygen Concentration - - Weight 77.1 kg (170 lb) 01/21/2022 8:35 AM CDT Height 175.3 cm (5' 9 ) 01/21/2022 8:35 AM CDT Body Mass Index 25.1 01/21/2022 8:35 AM CDT Plan of Treatment Health Maintenance Due Date Last Done Comments Colon Cancer Screening-Colonoscopy 1950 Depression Screening 1950 Fall Risk Assessment 1950 Hepatitis C Screening 1950 Hepatitis B Screening 1968 Pneumococcal vaccine 65+ (1 of 1 - PCV) 2000 Abdominal Aortic Aneurysm (A AA) Screen 2015 Well Visit 65+ 2015 Zoster Vaccine (3 of 3) 04/24/2020 02/28/2020, 03/30 Covid-19 Vaccine (2023-2 5 season) 2023 03/16/2021, 06/28/2020, 05/30/2020 Influenza Vaccine (#1) 2023 0, 01/06/2016, 02/06/2015, Additional history exists DTaP/Tdap/Td Vaccine (2 - Td or Tdap) 11/05/2029 11/06/2019 Insurance MEDICARE [facility] Care Teams Research Program Internship Relationship Specialty Start Date End Date Keith Ball MD PCP - General 04/06/17
--- OUTSIDE RECORDS SUMMARY | 2024-07-02 08:57 | XMS_ITS | Encounter Summary ---
Author Organization [facility] Address 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
--- OUTSIDE RECORDS SUMMARY | 2024-07-02 08:57 | XMS_ITS | Referral Summary ---
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
--- OUTSIDE RECORDS SUMMARY | 2024-07-02 08:57 | XMS_ITS | Encounter Summary ---
Author Organization [facility] Address [address] [place] [address] Care Team Providers Care Sales Hunter Name Role Phone Conversion, History Primary Care Provider Evita olson Encounter Details Date Type Department Care Team (Late st Contact Info) Description 04/09/1999 Outpatient Historical [facility] Andrew Ball NO ADDRESS ON FILE Social History Tobacco Use Types Packs/Day Years Used Date Smoking Tobacco: Never Assessed Sex and Gender Information Value Date Recorded Sex Assigned at Not on file Legal Sex Male 8:36 AM OPTOMETRIC TECH Gender Identity Not on file Sexual Orientation Not on file documented as of this encounter Plan of Treatment Not on file documented as of this encounter Visit Diagnoses Not on filedocumented in this encounter Care Teams Sales Hunter Relationship Specialty Start Date End Date Conversion, History NO ADDRESS ON FILE PCP - General 04/14/04 documented as of this encounter
--- OUTSIDE RECORDS SUMMARY | 2024-07-02 08:57 | XMS_ITS | Patient Health Summary ---
Author Organization [facility] Address [address] [place] [address] Care Team Providers Care Instructional Technology Teacher Name Role Phone Keith Ball MD Primary Care Provider [phone] Note from [facility],non-owned Affiliates and Associated Physician Practices is amultiple site organization consisting of ambulatory clinics and hospital sitesin [place], [place], [place] and [place]. This disclosure is being madepursuant to the Care Everywhere program and may not contain all information available regarding this patient. Last updated 18.[facility] Do It Original Allergies No known active allergies Medications * Be aware that medications may not be up to date on this document. Alwaysverify current medications with the patient. * lisinopril-hydrochlorothiazide (PRINZIDE; ZESTORETIC) 20-12.5 MG tablet Take 1 Tab by mouth once daily * metoprolol succinate XL 24hr (TOPROL XL) 50 MG tablet Take 50 mg by mouth once daily * finasteride (PROSCAR) 5 MG tablet Take 5 mg by mouth once daily * azelastine (ASTEPRO) 205.5 MCG/SPRAY nasal spray [place] 2 Sprays into each nostril 2 times daily * fluticasone propionate (FLONASE) 50 MCG/ACT nasal spray(Started 03/12/2015) Social History Tobacco Use Types Packs/Day Years [...] Comments Blood Pressure 126/84 03/31/2015 11:22 AM ADULT LIVE IN CAREGIVER Pulse 51 03/31/2015 11:22 AM ADULT LIVE IN CAREGIVER Temperature 36.7 C (98 F) 03/31/2015 11:22 AM ADULT LIVE IN CAREGIVER Respiratory Rate - - Oxygen Saturation - - Inhaled Oxygen Concentration - - Weight 83.9 kg (185 lb) 03/31/2015 11:22 AM ADULT LIVE IN CAREGIVER Height 175.3 cm (5' 9 ) 03/31/2015 11:22 AM ADULT LIVE IN CAREGIVER Body Mass Index 27.32 03/31/2015 11:22 AM ADULT LIVE IN CAREGIVER Procedures * RAD OUTSIDE IMG IMPORT(Performed 04/03/2015) Performed for Pain Results * RAD OUTSIDE IMG IMPORT (04/03/2015 10:05 AM ADULT LIVE IN CAREGIVER) Anatomical Region Laterality Modality Radiographic Sheron ging Narrative 04/08/2015 1:30 PM ADULT LIVE IN CAREGIVER OUTSIDE IMAGES SUCCESSFULLY IMPORTED Simon Hidalgo MD DIAGNOSTIC IMAGING O [facility] Care Teams Instructional Technology Teacher Relationship Specialty Start Date End Date Keith Ball MD [address] [place] [id number] PCP - General Internal Medicine 03/21/15
--- OUTSIDE RECORDS SUMMARY | 2024-07-02 08:57 | XMS_ITS | Clinical Summary ---
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 Gender Identity Not on file Sexual Orientation Not on file Plan of Treatment Health Maintenance Due Date Last Done Comments DTAP/TDAP/TD VACCINES (1 - Tdap) 1969 COLORECTAL SCREENING 1995 Colorectal Cancer Screening 1995 FIT-DNA Q 3 years 1995 FIT/FOBT Q 1 year 1995 Flex Sig/CT Colonography Q 5 years 1995 PNEUMOCOCCAL VACCINE 50+ YEARS (1 of 1 - PCV) 06/03/19 01 ZOSTER VACCINE (1 of 2) 2000 INFLUENZA VACCINE (#1) 2023 RSV VACCINE (60+ or ) (1 - 1-dose 75+ series) 2025 Insurance RX ALLWIN DATA Medicare Part B Care Teams Title Checker Relationship Specialty Start Date End Date Conversion, History NO ADDRESS ON FILE PCP - General 04/14/04
--- OUTSIDE RECORDS SUMMARY | 2024-07-02 08:57 | XMS_ITS | Encounter Summary ---
Author Organization [facility] Address [address] [place] [address] Care Team Providers Care Bus Person Dishwasher Name Role Phone Conversion, History Primary Care Provider Evita olson Encounter Details Date Type Department Care Team (Late st Contact Info) Description 11/06/1998 Outpatient Historical [facility] Andrew Ball NO ADDRESS ON FILE Social History Tobacco Use Types Packs/Day Years Used Date Smoking Tobacco: Never Assessed Sex and Gender Information Value Date Recorded Sex Assigned at Not on file Legal Sex Male 8:36 AM INSPECTOR EYEGLASS Gender Identity Not on file Sexual Orientation Not on file documented as of this encounter Plan of Treatment Not on file documented as of this encounter Visit Diagnoses Not on filedocumented in this encounter Care Teams Bus Person Dishwasher Relationship Specialty Start Date End Date Conversion, History NO ADDRESS ON FILE PCP - General 04/14/04 documented as of this encounter
--- OUTSIDE RECORDS SUMMARY | 2024-07-02 08:57 | XMS_ITS | Clinical Summary ---
Author Organization [facility] Address [address] [place] [address] Care Team Providers Care Sugar Cane Farm Manager Name Role Phone Unavailable Primary Care Provider Unavailabl e Social History Tobacco Use Types Packs/Day Years Used Date Smoking Tobacco: Never Assessed Sex and Gender Information Value Date Recorded Sex Assigned at Not on file Legal Sex Male 8:51 AM RESISTOR WINDER Gender Identity Not on file Sexual Orientation Not on file Plan of Treatment Health Maintenance Due Date Last Done Comments Hepatitis C Virus (HCV) Screening 1950 Colonoscopy 1995 Colorectal Cancer Screening 1995 Cologuard 2000 Immunochemical Fecal Occult Blood 2000 Pneumococcal Immunization (50+ years) (1 of 1 - PCV) 2000 Zoster Immunization (3 of 3) 04/24/2020 02/28/2020, 03/30/2013 Influenza Immunization (#1) 12/18/202308/2019, 01/06/2016, 02/06/2015, Additional history exists SARS-COV-2 Immunization (2023- season) 2023 Respiratory Syncytial Virus (RSV) Immunization (Adult) (1 - 1-dose 75+ series) 2025 DTaP/Tdap/Td Immunization Discontinued 11/06/2019 TdaP Immunization Completed 11/06/2019 Hepatitis B Immunization Aged Out No longer eligible based on patient's age to complete this topic Meningococcal Immunization (ACWY) Aged Out No longer eligible based on patient's age to complete this topic Rotavirus Immunization Aged Out No lo nger eligible based on patient's age to complete this topic
[2024-07-02 10:07] LABS: Anion Gap 11 mmol/L (4-12); Blood Urea Nitrogen 20 mg/dL (9-20); Calcium 8.7 mg/dL (8.4-10.2); Carbon Dioxide 24 mmol/L (22-30); Chloride 109 mmol/L (98-107); Estimated Glomerular Filt Rate 55; Glucose 66 mg/dL (65-110); Potassium 4.4 mmol/L (3.4-5.0); Sodium 144 mmol/L (137-145)
== END 2024-07-02 08:31 | disposition home or self-care (01) ==
LOC: ANHSURGERY 08:36
PROVIDERS: Anesthesiology; PCP Internal Medicine; Visit Provider Plastic Surgery
DX: Z79.899 Other long term (current) drug therapy (principal); Z01.818 Encounter for other preprocedural examination
CPT/HCPCS: 36415; 80048

== ENCOUNTER 2024-07-09 08:34 | Outpatient (CLI) | payer MEDICARE, SELFPAY ==
--- NOTE | ~2024-07-09 | XR_ITS ---
XR elbow LT min 3V Ordering provider: Sammy Lopez MD History: . M25.522 - Pain in left elbow X 6 WEEKS, NKI . Comparison: None. FINDINGS: BONES: No acute fracture or dislocation. JOINT SPACES: Normal. SOFT TISSUES: Normal. No definite joint effusion. IMPRESSION: No acute osseous abnormality left elbow. Reviewed, dictated and finalized at location A.
--- OUTSIDE RECORDS SUMMARY | 2024-07-09 09:06 | XMS_ITS | Clinical Summary ---
Author Organization [facility] Address [address] Attn: Epic Prelude ADT [place]IL[place] [address] Care Team Providers Care Estate Planning Counselor Name Role Phone Conversion, History Primary Care Provider Evita olson Social History Tobacco Use Types Packs/Day Years Used Date Smoking Tobacco: Never Assessed Sex and Gender Information Value Date Recorded Sex Assigned at Not on file Legal Sex Male 8:36 AM ENGINE MANAGER Gender Identity Not on file Sexual Orientation [...] [employer] Medicare Part B Care Teams Estate Planning Counselor Relationship Specialty Start Date End Date Conversion, History NO ADDRESS ON FILE PCP - General 04/14/04
--- OUTSIDE RECORDS SUMMARY | 2024-07-09 09:06 | XMS_ITS | Referral Summary ---
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
--- OUTSIDE RECORDS SUMMARY | 2024-07-09 09:06 | XMS_ITS | Encounter Summary ---
Author Organization [facility] Address 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
--- OUTSIDE RECORDS SUMMARY | 2024-07-09 09:06 | XMS_ITS | Encounter Summary ---
Author Organization [facility] Address 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
--- OUTSIDE RECORDS SUMMARY | 2024-07-09 09:06 | XMS_ITS | CONTINUITY OF CARE DOCUMENT ---
Author Name shannon ortega Address Unknown Organization [facility] Address [address] [place] [address] Phone [phone] Care Team Providers Care Citrus Peeler Name Role Phone Reza Schaeffer MD Unavailable [phone] SALLY AVALOS MD Unavailable SALLY AVALOS MD Unavailable [phone] PROBLEMS Condition Status Date Provider Notes Chest pain active [employer] [place] [employer] Payer name Policy type / Coverage type [place] red green party ID [facility] [id number] [place] MEDIC[place] Medicare [id number] TREATMENT PLAN Date Name Stress Exercise Card iolite
--- OUTSIDE RECORDS SUMMARY | 2024-07-09 09:06 | XMS_ITS | Clinical Summary ---
Author Organization [facility] Address [address] [place] [address] Care Team Providers Care Commercial Sheet Metal Foreman Name Role Phone Unavailable Primary Care Provider Unavailabl e Social History Tobacco Use Types Packs/Day Years Used Date Smoking Tobacco: Never Assessed Sex and Gender Information Value Date Recorded Sex Assigned at Not on file Legal Sex Male 8:51 AM WAX SPECIALIST Gender Identity Not on file Sexual Orientation [...] 01/06/2016, 02/06/2015, Additional history exists SARS-COV-2 Immunization ( - 2023- season) 2023 Respiratory Syncytial Virus (RSV) Immunization [...]
--- OUTSIDE RECORDS SUMMARY | 2024-07-09 09:06 | XMS_ITS | Clinical Summary ---
Author Organization [facility] [address] Address [address] [place] [address] Care Team Providers Care Tv Production Assistant Name Role Phone Keith Ball MD Primary [...] problems Surgical History Surgery Date Site/Laterality Comments [place] NEUROPLASTY &/TRANSPOS MEDIAN NRV CARPAL TUNNE Neuroplasty Decompression Median Nerve At Carpal Tunnel - Left, 03/2000 (Added by TW Conv) [place] NEUROPLASTY &/TRANSPOS MEDIAN NRV CARPAL TUNNE Neuroplasty Decompression Median Nerve At Carpal Tunnel - Right, 04/2000 (Added by TW Conv) [place] REPAIR FIRST ABDOMINAL [place] LL HERNIA Ventral Hernia Repair - 06/05/01 (Added by TW Conv) [place] GSTR RSTCV W/O BYP OTH/TH N SALOMON-BANDED [...] on file Legal Sex Male 2:31 AM ELIGIBILITY AND 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
--- OUTSIDE RECORDS SUMMARY | 2024-07-09 09:06 | XMS_ITS | Encounter Summary ---
[facility] Organization [facility] Address [address] [place] [address] Care Team Providers Care Hazardous Substances Engineer Name Role Phone Conversion, History Primary Care [...] on file Legal Sex Male 8:36 AM HAND COREMAKER Gender Identity Not on file Sexual Orientation Not on file documented as of this encounter Plan of Treatment Not on file documented as of this encounter Visit Diagnoses Not on filedocumented in this encounter Care Teams Hazardous Substances Engineer Relationship Specialty Start Date End Date Conversion, History NO ADDRESS ON FILE PCP - General 04/14/04 documented as of this encounter
--- OUTSIDE RECORDS SUMMARY | 2024-07-09 09:06 | XMS_ITS | Clinical Summary ---
Author Organization [facility] Address [address] [place] [address] Care Team Providers Care Private Branch Exchange Installer Name Role Phone Keith Ball MD Primary Care Provider [phone] Source Comments [facility],non-owned Affiliates and Associated Physician Practices is amultiple site organization consisting of ambulatory clinics and hospital sitesin [place], [place], [place] and [place]. This disclosure is being madepursuant to the Care Everywhere program and may not contain all information available regarding this patient. Last updated 18.[employer] [facility] Allergies No known active allergies Medications * [...] Active azelastine (ASTEPRO) 205.5 MCG/SPRAY nasal spray [place] 2 Sprays into each nostril 2 times [...] Comments Blood Pressure 126/84 03/31/2015 11:22 AM FILM VAULT SUPERVISOR Pulse 51 03/31/2015 11:22 AM FILM VAULT SUPERVISOR Temperature 36.7 C (98 F) 03/31/2015 11:22 AM FILM VAULT SUPERVISOR Respiratory Rate - - Oxygen Saturation - - Inhaled Oxygen Concentration - - Weight 83.9 kg (185 lb) 03/31/2015 11:22 AM FILM VAULT SUPERVISOR Height 175.3 cm (5' 9 ) 03/31/2015 11:22 AM FILM VAULT SUPERVISOR Body Mass Index 27.32 03/31/2015 11:22 AM FILM VAULT SUPERVISOR Plan of Treatment Health Maintenance Due Date [...] age to complete this topic Care Teams Private Branch Exchange Installer Relationship Specialty Start Date End Date Keith Ball MD [address] [place] [address] [address] [place] [address] PCP - General Internal Medicine 03/21/15
== END 2024-07-09 08:35 | disposition home or self-care (01) ==
PROVIDERS: PCP Internal Medicine; Visit Provider Plastic Surgery
DX: M25.522 Pain in left elbow (principal)
CPT/HCPCS: 73080

== ENCOUNTER 2024-07-11 00:24 | Day surgery (SDC) | payer MEDICARE, SELFPAY ==
[2024-06-26 09:12] VITALS: BMI 24.0
--- NOTE | 2024-06-26 09:22 | PC.NURSE ---
Report to the Outpatient Waiting Room, entrance under the green pavilion located off [facility], at time _11:15am on date _07/11/24 . Planned Procedure Time: _13:15pm .? Time changes happen often and if your time is changed the preop area will call you the afternoon before. - You and your visitor will be asked to self-screen and do not enter if you have any COVID symptoms. Please call surgeon if you need to reschedule. - A mask is optional within the hospital at this time. Patients - No food or drink from midnight until time of surgery and no smoking, or chewing tobacco (or any form of nicotine). No chewing gum, candy or mints. Take only the following medications with a SIP of water on the morning of surgery: ___Metoprolol DO NOT STOP ANY OF YOUR OTHER PRESCRIPTION MEDICATIONS PRIOR TO SURGERY EXCEPT THE FOLLOWING Hold all vitamins and supplements for 3 days per anesthesiologist.Date to take last dose 07/07/24 Medications to discontinue per physician ___None Date to take last dose None Please no make-up, nail togolese, hairspray, perfume, deodorant, or body powder the day of surgery.? No jewelry (including any body piercings) or valuables the day of surgery, leave them at home.? Please take a shower or bath the night before, or the morning of, surgery with an antibacterial soap.? Wear comfortable, loose fitting clothing.? - Jewelry must be removed prior to entering the operating room.? Rings and piercings that are not removed may be cut off. - The hospital will not accept responsibility for valuables.? - Please leave all valuables, including medications, at home the day of surgery. If you are going home after surgery, a licensed construction driver must drive you home.? - NO public transportation without another adult if you receive anesthesia. - We recommend that an adult stay with you for 24 hours following discharge. - We also recommend that you do not drive, make important decision, drink alcoholic beverages, or take any drugs that were not prescribed by your health care provider for at least 24 hours after your discharge time. Follow any additional instructions given to you from your surgeon. Telephone instructions given to ___Patient and asked if any additional questions and then verbalized understanding. Patient advised to call surgeon office or pre surgery nurse liaison [phone] if any additional questions.
--- OUTSIDE RECORDS SUMMARY | 2024-07-11 00:28 | XMS_ITS | CONTINUITY OF CARE DOCUMENT ---
Author Name shannon ortega Address Unknown Organization [facility] Address [address] [place] [address] Phone [phone] Care Team Providers Care Line Department Supervisor Name Role Phone Reza Schaeffer MD Unavailable [phone] SALLY AVALOS MD Unavailable SALLY AVALOS MD Unavailable [phone] PROBLEMS Condition Status Date Provider Notes Chest pain active [employer] [place] [employer] Payer name Policy type / Coverage type [place] red democrat ID BLUE [facility] [id number] [place] Medicare [id number] TREATMENT PLAN Date Name Stress Exercise Card iolite
--- OUTSIDE RECORDS SUMMARY | 2024-07-11 00:29 | XMS_ITS | Encounter Summary ---
Author Organization [facility] Address 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
--- OUTSIDE RECORDS SUMMARY | 2024-07-11 00:29 | XMS_ITS | Clinical Summary ---
Author Organization [facility] Address [address] [place] [address] Care Team Providers Care Business Change Manager Name Role Phone Keith Ball MD Primary Care Provider [phone] Source Comments [facility],non-owned Affiliates and Associated Physician Practices is amultiple site organization consisting of ambulatory clinics and hospital sitesin [place], [place], [place] and [place]. This disclosure is being madepursuant to the Care Everywhere program and may not contain all information available regarding this patient. 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 Pulse 51 03/31/2015 11:22 AM YOUTH NUTRITIONAL MONITOR Temperature 36.7 C (98 F) 03/31/2015 11:22 AM YOUTH NUTRITIONAL MONITOR Respiratory Rate - - Oxygen Saturation - - Inhaled Oxygen Concentration - - Weight 83.9 kg (185 lb) 03/31/2015 11:22 AM YOUTH NUTRITIONAL MONITOR Height 175.3 cm (5' 9 ) 03/31/2015 11:22 AM YOUTH NUTRITIONAL MONITOR Body Mass Index 27.32 03/31/2015 11:22 AM YOUTH NUTRITIONAL MONITOR Plan of Treatment Health Maintenance Due Date [...] age to complete this topic Care Teams Business Change Manager Relationship Specialty Start Date End Date Keith Ball MD [address] [place] [address] [address] [place] [address] PCP - General Internal Medicine 03/21/15
--- OUTSIDE RECORDS SUMMARY | 2024-07-11 00:29 | XMS_ITS | Clinical Summary ---
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
--- OUTSIDE RECORDS SUMMARY | 2024-07-11 00:29 | XMS_ITS | Data Portability ---
Author Organization [place] [facility], Main Office Address [address] [place] [address] Care Team Providers Care Wall Man Name Role Phone SALLY BALL Primary Care Provider [phone] Assessment No assessment recorded. Plan of Treatment Reminders Order Date Submit Date Provider Last Modified By Organization Details Last Modified Time Details Appointments None recorded. Lab enteric bacteria, organism specific culture, stool [address] (Lab), [address] [place], [address], 4 12:36:50 c diff toxin genes, qual, PCR, stool [address] (Lab), [address] [place], [address], 4 12:36:51 O&P (ova & parasites), stool [address] (Lab), [address] [place], [address], 4 12:36:51 calprotecti n, stool 2023 024 [id number] [facility], [address] [facility] [address], [address], 5 17:44:00 pancreatic elastase, quant, stool 2023 024 [id number] [facility], [address] [facility] [address], [address], 5 17:44:00 lipid panel, serum 2023 024 [facility], [address], [place], [address], 4 14:36:24 CMP, serum or plasma 2023 024 [id number] [facility], [address], [place], [address], 4 14:36:25 vitamin B12, serum 2023 024 [facility], [address], [place], [address], 4 14:36:25 magnesium, serum or plasma 2023 024 [id number] [facility], [address], [place], [address], 4 14:36:25 CBC w/ auto diff 2023 024 [id number] [facility], [address], [place], [address], 4 14:36:24 CMP, serum or plasma 2023 024 [id number] [facility], [address], [place], [address], 4 10:05:38 lipid panel, serum 2023 024 [facility], [address], [place], [address], 4 10:05:38 PSA, serum or plasma 2023 024 [id number] [facility], [address], [place], [address], 4 10:05:39 CBC w/ auto diff 2023 024 [id number] [facility], [address], [place], [address], 4 10:05:38 TSH, serum or plasma 2023 024 [id number] [facility], [address], [place], [address], 4 10:05:38 T4, free, serum 2023 024 [id number] [facility], [address], [place], [address], 4 10:05:39 lyme disease igg+igm, serum, reflex western blot 2022 023 [id number] [facility], [address], [place], [address], 3 09:50:56 CBC w/ auto diff 2022 023 [id number] [facility], [address], [place], [address], 3 09:50:56 CMP, serum or plasma 2022 023 [id number] [facility], [address], [place], [address], 3 09:50:56 lipid panel, serum 2022 023 [id number] [facility], [address] Zeng, [place], [address], 3 09:50:56 Referral None recorded. Procedures None recorded. Surgeries None recorded. Imaging None recorded. Medication Orders pantoprazol e 40 mg tablet,garcía yed release 2023 024 ED[facility] [address] [place], [address], 4 10:51:42 doxycycline hyclate 100 mg capsule 2022 023 [email or web address] 45 [facility] [address], [address] [place], [address], 4 10:54:27 Patient TargetsNo targets recorded. Patient Instructions Encounter Date Encounter Id Patient Instructions Last Modified By Organization Details Last Modified Time 12/21/2022 [id number] dementia rating scale-2* [email or web address] Not available 12/21/2022 11:17:29 alcohol misuse* [email or web address] Not available 12/21/2022 11:17:30 depression screening* Not available 12/21/2022 11:17:29 multi-dimensiona l health assessment questionnaire* [email or web address] Not available 12/21/2022 11:17:30 Personalized [facility] lt Plan and Screening Recommendations Advance [...] I have no recommendations Depression Screening: Negative [email or web address] Not available 12/21/2022 10:48:15 [facility] risk assessment stable. Follow-up for [...] recognize, using context, where substitutions have occurred. [email or web address] Not available 12/21/2022 11:17:04 06/21/2023 [id number] Atypical chest pain, hypertension, hyperlipidemia history of [...] colonoscopy for polyp Upper endoscopy for dysphagia [email or web address] Not available 06/21/2023 10:51:13 12/27/2023 [id number] dementia rating scale-2* [email or web address] Not available 12/27/2023 11:19:50 alcohol misuse* [email or web address] Not available 12/27/2023 11:19:50 depression screening* [email or web address] Not available 12/27/2023 11:19:50 multi-dimensiona l health assessment questionnaire* [email or web address] Not available 12/27/2023 11:19:50 Personalized a lth [...] I have no recommendations Depression Screening: Negative [email or web address] Not available 12/27/2023 11:04:39 Medicare well[facility] [...] recognize, using context, where substitutions have occurred. [email or web address] Not available 12/27/2023 11:19:04 04/04/2024 [id number] Diarrhea, hypertension, hyperlipidemia, SVT, benign prostatic hypertrophy. [...] Created: Sally Ball M.D. 04.04.2024 11:32 AM [email or web address] Not available 04/04/2024 12:32:40 Reason for Referral None Reported. Results Created Date Observation Date Name Description Value Unit Range Abnormal Flag Note LastModifiedBy Organization Detail LastModifiedTime 04/16/20 24 04/14/2024 DEXA No observ ation record ed. [address], [place], [address], 04/16/2024 13:46:45 07/10/19 25 07/09/2024 imagi ng/maurizio stallings tic resul t No observ ation record ed. [address], [place], [address], 07/09/2024 10:48:56 Result Notes None recorded. Problems Name Problem SNOMED Code Status Onset Date Resolution Date Notes Provider Name and Address Organization Details Recorded Time Irritable bowel syndrome 36259588 Active Not Available [facility] 3 14:48:07 Benign essential hypertension 9537530 Active Not Available [facility] 3 14:48:07 Senile osteoporosis 92384278 Active 2021 Not Available [facility] 3 14:48:07 Insomnia 034465924 Active Not Available [facility] 3 14:48:07 Short bowel syndrome 58707962 Active 2021 Not Available [facility] 3 14:48:07 Benign prostatic hyperplasia 416482361 Active Not Available [facility] 3 14:48:08 Pure hypercholeste rolemia 255057970 Active Not Available [facility] 3 14:48:08 Disorder of prostate 89662309 Active 2022 Not Available [facility] 3 14:48:08 Disorder of penis 88368517 Active Not Available [facility] 3 14:48:08 Migraine 48745365 Active Not Available [facility] 3 14:48:08 Umbilical hernia 208659673 Active Not Available [employer] 3 14:48:08 Disorder of rotator cuff 834588160 Active Not Available [facility] 3 14:48:08 History of polyp of colon 028185327 Active 2016 Not Available [facility] 3 14:48:08 Screening for malignant neoplasm of prostate Active 2021 Not Available [facility] 3 14:48:08 Cervical radiculopathy 37392107 Active Not Available [facility] 3 14:48:08 Carpal tunnel syndrome 94942074 Active Not Available [facility] 3 14:48:08 Supraventricu lar tachycardia 6991264 Active Not Available [facility] 3 14:48:08 Bilateral inguinal hernia 42712204 Active Not Available [facility] 3 14:48:08 Annular erythema 490039938 Active 2022 Sally Ball MD [address], [place], [address] , [employer] [facility] [employer] [facility] 3 11:15:36 Atypical chest pain 591296111 Active 2023 Sally Ball MD [address], [place], [address] , [employer] [facility] [employer] [facility] 4 10:43:15 Osteoarthriti s 837750649 Active 2023 Sally Ball MD [address], [place], [address] , [employer] [facility] [employer] [facility] 4 11:12:48 Gastroesophag eal reflux disease 738908220 Active 2023 Sally Ball MD [address], [place], [address] , [employer] [facility] [employer] [facility] 4 11:14:01 Diarrhea 54588701 Active 2023 Sally Ball MD [address], [place], [address] , [employer] [facility] [employer] [facility] 4 12:25:00 Problem Notes None recorded. Procedures Surgical History Date Name Laterality Status Provider Name and Address Organization Details Recorded Time 4 Medicare Wellness CPT Code, subsequent completed Juliana Samaniego RN [facility] 12/27/2023 10:58:03 3 Medicare Wellness CPT Code, subsequent completed Juliana Samaniego RN [facility] 12/21/2022 10:41:54 Imaging Results Imaging Date Name Status LastModified by Organiz [facility]formerly [facility] Details LastModified Time 04/14/2024 DEXA completed [email or web address] [place] [address] [place] [address] [address], [place], [address], 04/16/2024 13:46:45 07/09/2024 imaging/diag nostic result active [address], [place], [address], 07/09/2024 10:48:56 Procedure Notes None recorded. Medical Equipment None [...] 50 mg tablet TAKE 1 TABLET TWICE A DAY 2024 active Not Available Not Available Not Avai lable azelastin e 137 mcg (0.1 %) nasal spray USE 2 SPRAYS NASALLY TWICE DAILY 2024 active Not Available Not Available Not Avai lable Benton 7.5 mg-325 mg tablet Take 1 tablet every 6 hours by oral route. 04/07 completed Increase Text Size Decrease Text Size Restore Default Font-Siz eClick to Resize TextLast Name First Name Street Address City State Zip Date of Date Filled Label Name Strength Metric Qty/Days Supply Payment Type ? Pharmacy Name/ City Prescrib er NameMOAT S KEN [address] [place] [address] 1 9 HYDROCOD ONE BITARTRA TE-ACETA MINOPHE 7.5MG-32 5MG 12/11 Medicare [facility] 501559/ DEVON BALL Not Available Not Available Not [...] de 5 mg tablet TAKE 1 TABLET DAILY 2024 active Not Available Not Available Not Avai lable multivita min daily 04/07 completed Not Available Not Available Not Available azelastin e 205.5 mcg (0.15 %) nasal spray [place] 1 spray twice a day by intranas [...] Not Available Not Available Not Avai lable [employer] COVID-19 Ag Self Test kit Use as [...] % 98 % 68 /min 97.2 [degF] 99634.7 g 122 mm[Hg] 68 mm[Hg] Not Available [facility] 3 14:47:21 Date Recorded Body height Body mass index (BMI) Body weight Body temperature Oxygen saturation Oxygen saturation in Arterial blood by Pulse oximetry Systolic blood pressure Diastolic blood pressure Provider Name and Address Organization Details Last Updated DateTime 3 172.72 cm 24.9 kg/m2 46084.1 5 g 96.8 [degF] 99 % 99 % 120 mm[Hg] 70 mm[Hg] Selena Chino MA [employer] 3 10:36:00 Date Recorded Heart rate Provider Name an d Address Organization Details Last Updated DateTime 12/21/2022 58 /min Sally Ball MD [address], [facility] [address], [place], [address], [employer] [employer] 12/21/2022 11:11:13 Date Recorded Pain severity - 0-10 verbal numeric rating [Score] - Reported Provider Name and Address Organization Details Last Updated DateTime 12/21/2022 0 Juliana Samaniego RN [facility] 12/21/2022 10:42:10 Date Recorded Body height Body mass index (BMI) Body weight Heart rate Body temperature Oxygen saturation Oxygen saturation in Arterial blood by Pulse oximetry Systolic blood pressure Diastolic blood pressure Provider Name and Address Organization Details Last Updated DateTime 4 172.72 cm 26.3 kg/m2 80254.4 8 g 53 /min 97 [degF] 96 % 96 % 144 mm[Hg] 72 mm[Hg] Minnie Hastingsfadumo [facility] [employer] [facility] 4 10:38:46 Date Recorded Body height Body mass index (BMI) Body weight Heart rate Body temperature Oxygen saturation Oxygen saturation in Arterial blood by Pulse oximetry Systolic blood pressure Diastolic blood pressure Provider Name and Address Organization Details Last Updated DateTime 4 172.72 cm 24.6 kg/m2 09653.9 6 g 55 /min 97.8 [degF] 98 % 98 % 118 mm[Hg] 74 mm[Hg] Kristy Luke Christi [facility] [employer] [facility] 4 10:53:22 Date Recorded Pain severity - 0-10 verbal numeric rating [Score] - Reported Provider Name and Address Organization Details Last Updated DateTime 12/27/2023 0 Juliana Samaniego RN [facility] [employer] [facility] 12/27/2023 10:58:24 Date Recorded Body height Body mass index (BMI) Body weight Heart rate Body temperature Oxygen saturation Oxygen saturation in Arterial blood by Pulse oximetry Systolic blood pressure Diastolic blood pressure Provider Name and Address Organization Details Last Updated DateTime 4 172.72 cm 25.5 kg/m2 88584.5 2 g 56 /min 97 [degF] 98 % 98 % 118 mm[Hg] 80 mm[Hg] Kristy Luke Christi [facility] [employer] [facility] 4 12:06:57 Social History Question Answer Notes LastModified by Organizat ion Details LastModified Time Tobacco Smoking Status Never Smoker Not Available [facility] 06/16/2022 14:45:22 Do You Have An Advance Directive? Yes MIGRATION.55972 04039 Information not available 06/16/2022 What Is Your Level Of Alcohol Consumption? Occasional MIGRATION.31748 96577 Information not available 06/16/2022 Are You Blind Or Do You Have Difficulty Seeing? No MIGRATION.36553 06997 Information not available 06/16/2022 What Is Your Level Of Caffeine Consumption? None MIGRATION.29080 99553 Information not available 06/16/2022 In The 14 Days Before Symptom Onset, Have You Had Close Contact With A Laboratory-confi rmed COVID-19 While That Case Was Ill? No MIGRATION.50322 87859 Information not available 06/16/2022 In The 14 Days Before Symptom Onset, Have You Had Close Contact With A Person Who Is Under Investigation For COVID-19 While That Person Was Ill? No MIGRATION.75176 71894 Information not available 06/16/2022 Are You Deaf Or Do You Have Serious Difficulty Hearing? Yes Has Hearing Aids But Does Not Wear Them MIGRATION.97534 72136 Information not available 06/16/2022 What Type Of Diet Are You Following? REGULAR MIGRATION.09503 37197 Information not available 06/16/2022 What Is Your Occupation? [employer] MIGRATION.90723 39503 Information not available 06/16/2022 How Many Days Of Moderate To Strenuous Exercise, Like A Brisk Walk, Did You Do In The Last 7 Days? 7 MIGRATION.32328 86768 Information not available 06/16/2022 Have There Been Any Changes To Your Family Or Social Situation? No MIGRATION.33437 04769 Information not available 06/16/2022 What Is The Fluoride Status Of Your Home? Unknown MIGRATION.72951 74093 Information not available 06/16/2022 Are There Any Guns Present In Your Home? Yes MIGRATION.44444 50772 Information not available 06/16/2022 Do You Use Insect Repellent Routinely? No MIGRATION.21120 37796 Information not available 06/16/2022 [facility] MIGRATION.23011 48474 Information not available 06/16/2022 Guns Present In The Home? Yes [email or web address] Information not available 12/27/2023 Are You Able To Care For Yourself? Yes [email or web address] Information not available 12/27/2023 Are You Blind Or Do Yo Have Difficulty Seeing? No [email or web address] Information not available 12/27/2023 Are You Deaf Or Do You Have Serious Difficulty Hearing? Yes [email or web address] Information not available 12/27/2023 Live Alone Of With Others? With Others [email or web address] Information not available 12/27/2023 Do You Have A Medical Power Of Doctor Podiatric Medicine? Yes MIGRATION.87628 77271 Information not available 06/16/2022 What Was The Date Of Your Most Recent Tobacco Screening? 12/27/2023 Information not available 12/27/2023 Have You Ever Been Counseled For Unhealthy Alcohol Use? No MIGRATION.61206 31638 Information not available 06/16/2022 Do You Have Any Pets? No MIGRATION.36875 43502 Information not available 06/16/2022 What Is Your Relationship Status? MIGRATION.84550 85645 Information not available 06/16/2022 Do You Use Your Seat Belt Or Car Seat Routinely? Yes MIGRATION.90823 55809 Information not available 06/16/2022 Do You Have Smoke And Carbon Monoxide Detectors In Your Home? Yes MIGRATION.85169 81579 Information not available 06/16/2022 Are You Passively Exposed To Smoke? No MIGRATION.01450 19177 Information not available 06/16/2022 Are There Any Smokers In Your House? No MIGRATION.00203 68840 Information not available 06/16/2022 Do You Feel Stressed (tense, Restless, Nervous, Or Anxious, Or Unable To Sleep At Night)? [id number] MIGRATION.35765 67050 Information not available 06/16/2022 Do You Use Any Illicit Or Recreational Drugs? No MIGRATION.13478 92564 Information not available 06/16/2022 Do You Use Sunscreen Routinely? No MIGRATION.59734 40388 Information not available 06/16/2022 Have You Recently Traveled Abroad? No MIGRATION.29760 17427 Information not available 06/16/2022 Do You Have Any Dietary Restrictions? No MIGRATION.11819 24563 Information not available 06/16/2022 Sex: Unknown Functional Status Question Answer Note LastModified by Organizat ion Details LastModified Time Do you have difficulty walking or climbing stairs? No MIGRATION.7095373 026 Information not available 06/16/2022 Do you have transportation difficulties? No MIGRATION.1485958 026 Information not available 06/16/2022 Are you able to walk? YESWOREST MIGRATION.8498038 026 Information not available 06/16/2022 Do you have difficulty doing errands alone? No MIGRATION.8702523 026 Information not available 06/16/2022 Are you able to care for yourself? No MIGRATION.6029101 026 Information not available 06/16/2022 Do you have difficulty dressing or bathing? No MIGRATION.1060802 026 Information not available 06/16/2022 What is your exercise level? Heavy MIGRATION.6739953 026 Information not available 06/16/2022 Mental Status Question Answer Note LastModified by Organizat ion Details LastModified Time Do you have difficulty concentrating, remembering or making decisions? No MIGRATION.[id number] 6 Information not available 06/16/2022 Family History [...] HAVE YOU BEEN HOSPITALIZED OR SEEN IN [facility] IN THE PAST YEAR ? N ATHEROSCLEROSIS [...] syncytial virus (RSV) vaccine, unspecified 3 completed Minnie Slecka null, [facility] 04/22/2023 00:54:36 influenza, unspecified formulation 3 completed Minnie Slecka null, [facility] 04/22/2023 00:55:16 SARS-COV-2 (COVID-19) vaccine, UNSPECIFIED 3 completed [employer], [facility] 04/22/2023 00:56:46 zoster live 3 completed Not Available [facility] 06/16/2022 14:50:55 SARS-COV-2 (COVID-19) vaccine, UNSPECIFIED 1 completed Not Available [facility] 06/16/2022 14:50:55 COVID-19, mRNA, LNP-S, bivalent, PF, 50 mcg/0.5 mL or 25mcg/0.25 mL dose 2 completed Not Available [facility] 06/16/2022 14:50:55 Influenza, split virus, quadrivalent, preservative 2 completed Not Available [facility] 06/16/2022 14:50:55 Influenza, split virus, quadrivalent, preservative 1 completed Not Available [facility] 06/16/2022 14:50:55 COVID-19, mRNA, LNP-S, PF, 100 mcg/0.5mL dose or 50 mcg/0.25mL dose 1 completed Not Available [facility] 06/16/2022 14:50:55 SARS-COV-2 (COVID-19) vaccine, UNSPECIFIED 1 completed Not Available [facility] 06/16/2022 14:50:56 SARS-COV-2 (COVID-19) vaccine, UNSPECIFIED 1 completed Not Available [facility] 06/16/2022 14:50:56 pneumococcal polysaccharide PPV23 8 completed Not Available [facility] 06/16/2022 14:50:56 Influenza, split virus, trivalent, preservative 6 completed Not Available [facility] 06/16/2022 14:50:56 Influenza, high-dose, trivalent, PF 9 completed Not Available [facility] 06/16/2022 14:50:56 Influenza, high-dose, trivalent, PF 8 completed Not Available [facility] 06/16/2022 14:50:56 Influenza, high-dose, trivalent, PF 7 completed Not Available [facility] 06/16/2022 14:50:56 Pneumococcal conjugate PCV 13 7 completed Not Available [facility] 06/16/2022 14:50:56 Influenza, split virus, trivalent, preservative 4 completed Not Available [facility] 06/16/2022 14:50:56 Influenza, split virus, trivalent, preservative 3 completed Not Available [facility] 06/16/2022 14:50:56 Pneumococcal conjugate PCV20, polysaccharide IMN075 conjugate, adjuvant, PF 4 completed MARIA FERNANDA Benedict, RICHARD Melvin [facility] 04/04/2024 14:06:50 Past Encounters Encounter ID Performer Location Encounter Start Date Encounter Closed Date Diagnosis/Indication Diagnosis SNOMED-CT Code Diagnosis ICD10 Code Diagnosis Note [id number] [facility] Internal [facility] Vesna croft [address] [place] [address] [place] [address] 11/18/2020 00:00:00 11/18/2020 16:03:42 [id number] [facility] Internal [facility] Vesna croft [facility] Emily [place] [address] 05/19/2021 00:00:00 05/19/2021 10:41:40 [id number] [facility] Internal Med Vesna croft [address] [place] [address] [place] [address] 12/01/2021 00:00:00 12/01/2021 10:45:34 [id number] [facility] Internal Med Vesna croft [address] [place] [address] [place] [address] 06/01/2022 00:00:00 06/01/2022 10:49:13 [id number] Sally Ball MD [facility] Internal Med Ren eran [address] [place] [address] [place] [address] 12/21/2022 10:29:01 12/21/2022 11:21:56 Adult health examination 115124377 Z00.00 Screening for disorder 708813539 Z13.9 Pure hypercholesterolemia 149817847 E78.00 Supraventr icular tachycardia 6905393 I47.1 Benign pro static hyperplasia 407348569 N40.0 Benign ess ential hypertension 0074013 I10 Annular erythema 6335211 00 L53.2 [id number] Sally Ball MD [facility] Internal Med [address] y , [place] [address] 06/21/2023 10:31:48 06/22/2023 08:39:11 Atypical chest pain 506456417 R07.89 Benign ess ential hypertension 0704510 I10 Pure hypercholesterolemia 098495825 E78.00 History of polyp of colon 328331443 Z86.010 Disorder of prostate 302 68322 N42.9 [id number] Sally Ball MD [facility] Internal Med Vesna croft [address] [place] [address] y , [place] [address] 12/27/2023 10:39:00 12/27/2023 11:26:46 Adult health examination 145330824 Z00.00 Screening for disorder 469056479 Z13.9 Benign ess ential hypertension 4648548 I10 History of polyp of colon 516549143 Z86.010 Pure hypercholesterolemia 065867838 E78.00 Osteoarthritis 087526775 M19.90 Gastroesop hageal reflux disease 739651354 K21.9 [id number] Sally Ball MD [facility] Internal Med [address], [facility] [address] [place] [address] 04/04/2024 12:00:40 04/04/2024 14:53:33 Diarrhea 75761732 K52.89 R19.7 Benign ess ential hypertension 0474591 I10 Benign pro static hyperplasia 651100841 N40.0 Pure hypercholesterolemia 133613380 E78.00 Supraventr icular tachycardia 8601912 I47.10 Health Concerns Section Related Observation LastModified by Organization Detai ls LastModified Time None Recorded Concern Status LastModified by Organization Details LastModified Time None Recorded Advance Directives Directive Y: Payers Encounter Date Sequence Insurance Name Policy Number Policy Terry Covered Member ID Terry Member ID Guarantor Name 12/21/2022 1 [place] Ken D Glenn [id number] Ken D Glenn 12/21/2022 2 [place] [id number] Ken D Glenn [id number] Ken D Glenn 06/21/2023 1 [place] Ken D Glenn [id number] Ken D Glenn 06/21/2023 2 [facility] [employer] (MEDICARE SUPPLEMENT) PLAN F Ken D Glenn [id number] Ken D Glenn 12/27/2023 1 [place] Ken D Glenn [id number] Ken D Glenn 12/27/2023 2 [facility] [employer] (MEDICARE SUPPLEMENT) PLAN F Ken D Glenn [id number] Ken D Glenn 04/04/2024 1 [place] Ken D Glenn [id number] Ken D Glenn 04/04/2024 2 [facility] [employer] (MEDICARE SUPPLEMENT) PLAN F Ken D Glenn [id number] Ken D Glenn Notes Date Note Type Note Provider Name and Address Organization Details Recorded Time 3 text/htm l Patient Name: Ken RollefunmilayoDate Of Service: Tuesday ( 12.21.2022 ): 1950 [...] /SPRAY-0.05 MG/SPRAY (SPRAY, METERED - NASAL) One [place] Each Nostril DailyMultivitamin One DailyVitamin D 400 IU One DialyAleve 200 MG (TABLET - ORAL) One Bid For Cervical ReadiculopathyZestoretic 12.5 MG-20 MG (TABLET - ORAL) One Daily For HtnCelebrex 200 MG CAPSULE One Bid PrnTramadol Hydrochloride 50 MG TABLET One Twice DailyVaccination and Aeswkepyuuvu7507-87 Covid Booster Jeercgo2270-77 Jdwglobfp1622-37 Covid Booster Owuxph5960-78 Covid Dnflhap7107-18 Rjilmans8466-87 Pneumovax 474856-02 Prevnar 13Surgical HistoryBilateral Inguinal Hernias, Ventral Hernia with Mesh, Radiofrequency Ablation SVT, Gastric Bypass, SVT Ablation, hernia repair laproscopy, Marvin. CTSPreventative Testing Confirmed by Our Bzftene1306/15/2022 ALBUMIN 4.4 G/DL06/15/2022 PSA 0.9 NG/ML07/09/2021 UPPER YHDJEEVPI73/07/2022 DEXA SCAN04/14/2018 COLONOSCOPY (5 YEARS) /04/2015 HAIC 5.7 % OF TOTAL HGB HSocial HistoryDoes not smoke cigarettes. 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 Hx: Sexually ActiveOccupation: Office WorkerFamily HistoryMother 89 years oldFather 81 years old2 Sisters 2 LivingMother Hx: HTN and CVAFather Hx: HTN, ASHDOne sister MS other living and good health Sally Ball MD [address] [facility], [facility], [place], [address], [facility] 12/21/2022 11:17:35 4 text/htm l Patient Name: Ken Dasilva Of Service: Tuesday ( 06.21.2023 ): 1950 [...] /SPRAY-0.05 MG/SPRAY (SPRAY, METERED - NASAL) One [place] Each Nostril DailyMultivitamin One DailyVitamin D 400 IU One DialyAleve 200 MG (TABLET - ORAL) One Bid For Cervical ReadiculopathyZestoretic 12.5 MG-20 MG (TABLET - ORAL) One Daily For HtnCelebrex 200 MG CAPSULE One Bid PrnTramadol Hydrochloride 50 MG TABLET One Twice Daily Vaccination and Suprzotjhbwj0268-52 Covid Booster Ageyyin0798-39 Trxkpglii7755-20 Covid Hnlprcu2371-42 Dxtmqreh5723-96 Iobdfagkk5496-34 Prevnar 13 Gc Surgical Gonoews7937-96 Bilateral Inguinal Ozusgyg6008-67 Ventral Hernia with Nzic4850-76 Radiofrequency Ablation ZXY0627-20 Gastric Ilfsiv1245-11 SVT Immiovlo3001-81 hernia repair svuicrohrv8820-17 Marvin. CTS Preventative Vrxqhvb4012/23/2022 ALBUMIN 4.5 G/DL N006/15/2022 PSA 0.9 NG/ML N007/09/2021 UPPER CFQDHVRJI02/07/2022 DEXA SCAN04/14/2018 COLONOSCOPY (5 YEARS) /04/2015 HAIC 5.7 % OF TOTAL HGB H Social HistoryDoes not smoke cigarettes. 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27.2023 ): [...] /SPRAY-0.05 MG/SPRAY (SPRAY, METERED - NASAL) One [place] Each Nostril DailyMultivitamin One DailyVitamin D 400 IU One DialyAleve 200 MG (TABLET - ORAL) One Bid For Cervical ReadiculopathyZestoretic 12.5 MG-20 MG (TABLET - ORAL) One Daily For HtnCelebrex 200 MG CAPSULE One Bid PrnTramadol Hydrochloride 50 MG TABLET One Twice Daily Vaccination and Bpigwafcghbe4345-87 Covid Booster Byqukor1014-91 Rsjqyexrs9200-05 Covid Yhurlmg5573-05 Wblszord8919-85 Vsfvntktd7983-89 Prevnar 13 Gc Surgical Ngxprhx2180-73 Bilateral Inguinal Hjwcoms5680-60 Ventral Hernia with Lgyv1471-06 Radiofrequency Ablation QBN3374-96 Gastric Efwmqv3375-94 SVT Ameqveav1578-98 hernia repair gxiqqedpfe0786-25 Marvin. CTS Preventative Testing( ) 06/23/2023 Albumin 4.3 G/DL( ) 06/23/2023 PSA 1.1 NG/ML 06/22/2025( ) 07/09/2021 Upper Endoscopy(X) 05/25/2021 DEXA Scan 05/25/2023(X) 04/14/2018 Colonoscopy (5 Years) 04/14/2023( ) 09/17/2015 HAIC 5.7 % OF TOTAL HGB H Social HistoryDoes not smoke cigarettes. 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 Hx: Sexually ActiveOccupation: Simplex Operator Family HistoryMother 89 years oldFather 81 years [...] MG/DLHDL CHOLESTEROL 69 >39 MG/DLLDL CHOL CALC ([facility]) 102 0-99 MG/DLPROSTATE-SPECIFIC AG Date: 4PROSTATE SPECIFIC AG 1.1 0.0-4.0 NG/ML Sally Ball MD [address], [address], [place], [address], [place] [facility] [employer] [facility] 12/27/2023 11:19:55 4 text/htm l Patient Name: Ken Dasilva Of Service: Tuesday ( 04.04.2024 ): 1950 [...] /SPRAY-0.05 MG/SPRAY (SPRAY, METERED - NASAL) One [place] Each Nostril DailyMultivitamin One DailyVitamin D 400 IU One DialyAleve 200 MG (TABLET - ORAL) One Bid For Cervical ReadiculopathyZestoretic 12.5 MG-20 MG (TABLET - ORAL) One Daily For HtnCelebrex 200 MG CAPSULE Once DailyTramadol Hydrochloride 50 MG TABLET One Twice DailyFlomax .4 MG CAPSULE One Hs Vaccination and Immunization(X) 2021- INFLUENZA( ) 2017- PREVNAR 13 GC(X) 2017- PNEUMOVAX PREVNAR 20 Needed( ) 2019- SHINGRIX( ) 2020- COVID MODERNA(X) 2021- COVID BOOSTER MODERNA Surgical Ivdryli0344-29 Bilateral Inguinal Lqtavrj0794-41 Ventral Hernia with Imbh2750-56 Radiofrequency Ablation QAB4264-45 Gastric Xxkjoe6701-49 SVT Mdtnjoyj0644-77 hernia repair tdbijsrcyt9250-00 Marvin. CTS Preventative Testing( ) 02/27/2024 Colonoscopy ( 10 Years ) 02/26/2034( ) 12/30/2023 Albumin 4.3 G/DL( ) 06/23/2023 PSA 1.1 NG/ML 06/22/2025(X) 07/09/2021 Upper Endoscopy 07/10/2023(X) 05/25/2021 DEXA Scan 05/25/2023( ) 09/17/2015 HAIC 5.7 % OF TOTAL HGB H Social HistoryDoes not smoke cigarettes. 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 Hx: Sexually ActiveOccupation: Simplex Operator Family HistoryMother 89 years oldFather 81 years old2 Sisters 2 LivingMother Hx: HTN and CVAFather Hx: HTN, ASHDOne sister MS other living and good health Sally Ball MD [address] [facility], [facility], [place], [address], [place] [facility] 04/04/2024 12:32:57
--- OUTSIDE RECORDS SUMMARY | 2024-07-11 00:29 | XMS_ITS | Encounter Summary ---
Author Organization [facility] Address 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
--- OUTSIDE RECORDS SUMMARY | 2024-07-11 00:29 | XMS_ITS | Referral Summary ---
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
--- OUTSIDE RECORDS SUMMARY | 2024-07-11 00:29 | XMS_ITS | Clinical Summary ---
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
--- OUTSIDE RECORDS SUMMARY | 2024-07-11 00:29 | XMS_ITS | Encounter Summary ---
Author Organization [facility] Address 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
--- OUTSIDE RECORDS SUMMARY | 2024-07-11 00:29 | XMS_ITS | Clinical Summary ---
Author Organization [facility] [address] Address [address] [place] [address] Care Team Providers Care Block Cuber Name Role Phone Keith Ball MD Primary [...] problems Surgical History Surgery Date Site/Laterality Comments ID NEUROPLASTY &/TRANSPOS MEDIAN NRV CARPAL TUNNE Neuroplasty Decompression Median Nerve At Carpal Tunnel - Left, 03/2000 (Added by TW Conv) ID NEUROPLASTY &/TRANSPOS MEDIAN NRV CARPAL TUNNE Neuroplasty Decompression Median Nerve At Carpal Tunnel - Right, 04/2000 (Added by TW Conv) ID REPAIR FIRST ABDOMINAL WA LL HERNIA Ventral Hernia Repair - 06/05/01 (Added by TW Conv) ID GSTR RSTCV W/O BYP OTH/TH N SALOMON-BANDED [...] on file 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
--- NOTE | 2024-07-11 07:04 | WPDHPUPDATE1 ---
History and Physical Update Update Date/Time: 07/11/24 07:04 Patient seen and examined in pre-operative holding area. No interval change in medical history or symptoms. Patient recalls previous discussion of benefits and alternatives to procedure. Continues to desire to proceed with right small finger mucous cyst exicsion . Reviewed procedure, post-op expectations and risks including but not limited to bleeding, infection, injury to tendon/nerve/vessel, decreased hand function, stiffness, RSD, no change or worsening of symptoms, recurrence. I discussed the possible use of assistants and their participation in the case. Patient stated understanding and signed the consent form wishing to proceed.
--- NOTE | 2024-07-11 07:04 | W.PM.PROC2 ---
Procedure Note - Detailed Date of Procedure 07/11/24 Pre-op Diagnosis right small finger digital mucous cyst Post-op Diagnosis Same Procedure Performed right small finger mucous cysst excision, osteophyte excision and adjacent tissue transfer Surgeon Sammy Lopez MD Anesthesia MAC Description of Procedure INFORMED CONSENT: The patient was seen and examined and marked in the pre-op area.? The patient signed the consent form. PROCEDURE IN DETAIL:The patient taken back to OR on the stretcher in supine position. Time out performed with anesthesia, surgeon and staff agreeing on patient's name site and surgery to be performed SCDs were placed on the lower extremities and inflated. A tourniquet was placed on {right} upper extremity and antibiotics given IV After anesthesia administered sedation I injected {3}cc 1%lido and 0.5% marcaine plain foro digital block in the palm The?{right upper extremity}?was prepped and draped in sterile fashion the??{right upper extremity} was? exsanguinated with Esmarch bandage and tourniquet inflated to 250mmHg I proceeded with making elliptical incision around the affected skin over the mass of the right small finger through skin and dermis with a 15 blade scalpel and extended proximally to the DIPJ.. Skin flaps were elevated with 15 blade scalpel. I proceeded with circumferential dissection of the cystic mass back to the D IP joint. The mass was transected the D IP joint with bipolar cautery. Here I identified a large osteophyte originating from distal phalanx. Periosteum was reflected and rongeur was used to resect the osteophyte until smooth. I irrigated with normal saline. The capsular defect was repaired with 4-0 Vicryl suture. I was unable to close the defect primarily with wide undermining given the size of affected skin resection so I Extended my incision proximally to create a rotation advancement flap. This was rotated into place and closed with 4-0 chromic suture. A dressing of xeroform, 4x4, , and tube gauze was applied after the tourniquet was let down noting the hand was warm and well perfused. The patient was then awaken from anesthesia and transferred to the recovery room in stable condition.? Complications - none EBL- 0cc Disposition - home in stable conditions Nisreen Madden PA-C was essential for positioing, retraction, closure and dressing placement [facility] Billing Surgery - Charge Forward: Surgery Billing ([id number]. same for nisreen adding modifier )
[2024-07-11] MEDS: LACTATED RINGERS 1,000 ML 30 ML IV CONT (10:50)
[2024-07-11 11:40] VITALS: BP 167/85; PULSE 58; RESP 16; TEMP 36.6; O2SAT 100
[2024-07-11] MEDS: LIDOCAINE 1% LOCAL INJ 20 ML VIAL 10 ML INFILTRATE (12:48)
--- NOTE | 2024-07-11 12:50 | P.PNAN_ITS ---
Anes - Initial Pre Proc Eval Procedure: Operation Date: 07/11/24 13:30 Proposed Procedures p Excision of Right Small Finger Mucous Cyst - Sammy Lopez MD Date/Time: 07/11/24 12:50 Surgeon: Sammy Lopez MD Pre Op Diagnosis: right small finger digital mucous cyst Patient Data Age: 74 Gender: M Height: 1.75 m Weight: 76.2 kg Last Vital Signs Temp 97.8 F 07/11/24 11:40 Pulse 58 L 07/11/24 11:40 Resp 16 07/11/24 11:40 BP 167/85 H 07/11/24 11:40 Pulse Ox 100 07/11/24 11:40 O2 Del Method Room Air 07/11/24 11:40 Allergies Allergy/AdvReac Type Severity Reaction Status Date / Time No Known Allergies Allergy Unknown Verified 07/11/24 11:58 Home Medications ?Medication ?Instructions ?Recorded ?Confirmed ?Type Lactobacillus 2 cap PO DAILY 02/15/24 07/11/24 History acidophilus-Bifidobac.animalis 2.5 billion cell capsule (Daily Probiotic) azelastine 137 mcg (0.1 %) nasal 2 spray intranasal BID 02/15/24 07/11/24 History spray finasteride 5 mg tablet 5 mg PO DAILY 02/15/24 07/11/24 History fluticasone propionate 50 2 spray intranasal DAILY 02/15/24 07/11/24 History mcg/actuation nasal spray,suspension lisinopril 20 1 tablet PO DAILY 02/15/24 07/11/24 History mg-hydrochlorothiazide 12.5 mg tablet metoprolol tartrate 50 mg tablet 100 mg PO DAILY 02/15/24 07/11/24 History omeprazole 40 mg capsule,delayed 40 mg PO DAILY 02/15/24 07/11/24 History release tamsulosin 0.4 mg capsule 0.4 mg PO Q24H 06/26/24 07/11/24 History tramadol 50 mg tablet 50 mg PO Q6H PRN pain #12 tabs 07/11/24 Rx Patient hx anesthesia problems: none Family hx anesthesia problems: none Results Review: All pre-operative results and documents have been reviewed as part of the pre- operative evaluation. [facility] Past Medical History Medical History Hypertension SVT (supraventricular tachycardia) Surgical History Surgical History History of gastric bypass 2003 History of cardiac radiofrequency ablation 2005 Social History Social History Smoking status: Never smoker Alcohol intake: current Drinks per week: 4 Substance use: current Substance use type: marijuana Other substance usage details: Gummies to help sleep rarely Living arrangements: with family Additional living arrangements comments: Spiritual care concerns: No Anes - Eval Final PreProcedure Day of Procedure 07/11/24 12:50 Patient weight: normal Lungs: normal air movement Airway: Mallampati scale class II Neurological: alert and oriented Last oral intake: >/= 8 hours ASA classification: III Emergent: no Anesthetic plan: proceed Anesthesia type and monitoring: general GIVS and standard monitoring Results Review: All pre-operative results and documents have been reviewed as part of the pre- operative evaluation. HTN, remote hx of SVT, stable of recent. Informed Consent: The patient's anesthetic plan and its attendant risks and benefits were discussed with the patient/family/POA. Questions were solicited and answers provided to the satisfaction of the patient/family/POA.
[2024-07-11] MEDS: ceFAZolin 2 GM/D5W 50 ML 2 GM/50 ML BAG IVPB (12:59)
[2024-07-11 13:32] VITALS: BP 113/59; PULSE 48; RESP 20; O2SAT 97
[2024-07-11 14:00] VITALS: BP 126/60; PULSE 48; RESP 16; O2SAT 99
[2024-07-11 14:15] VITALS: BP 128/80; PULSE 50; RESP 16; O2SAT 99
== END 2024-07-11 14:20 | disposition home or self-care (01) ==
PROVIDERS: PCP Internal Medicine; Visit Provider Plastic Surgery
PROC: (CPT 14040; principal; 2024-07-11 13:30)
DX: M67.441 Ganglion, right hand (principal); M25.741 Osteophyte, right hand
CPT/HCPCS: 14040; 26210; 88305; 88309; 88311; J0690; J2003; J2250; J2704; J3010; J7120